=== PATIENT | female | born 1965 | race Hispanic/Latino ===

== ENCOUNTER 2018-09-28 23:10 | Emergency (ER) ==
[~2018-09-28] VITALS: Ht 154.9 cm; Wt 85.7 kg
[2018-09-28] MEDS ORDERED: KETOROLAC TROMETHAMINE 30 MG/ML VIAL IV STA (23:26)
[2018-09-28 23:36] LABS: BASOPHILS % 0.5 % (0.0-1.0); EOSINOPHILS # (AUTO) 0.2 (0.0-0.4); EOSINOPHILS % 1.9 % (0.0-6.0); HEMATOCRIT 37.1 % (34.2-44.1); HEMOGLOBIN 12.5 g/dL (12.0-16.0); LYMPHOCYTES # (AUTO) 2.9 (1.0-3.2); LYMPHOCYTES % 36.6 % (18.0-39.1); MEAN CORPUSCULAR HEMOGLOBIN 31.7 pg (28-32); MEAN CORPUSCULAR HGB CONC 33.7 g/dL (31-35); MEAN CORPUSCULAR VOLUME 94.2 fL (81-99); MONOCYTES # (AUTO) 0.6 (0.2-0.8); MONOCYTES % 8.2 % (4.4-11.3); NEUTROPHILS # (AUTO) 4.1 (2.1-6.9); NEUTROPHILS % 52.2 % (38.7-80.0); PLATELET COUNT 246 x10e3/uL (140-360); RED BLOOD COUNT 3.94 x10e6/uL (3.6-5.1); RED CELL DISTRIBUTION WIDTH 12.9 % (11.7-14.4)
[2018-09-28] MEDS ORDERED: KETOROLAC TROMETHAMINE 30 MG/ML VIAL ONE (23:36)
[2018-09-28] MEDS ORDERED: MAALOX MAXIMUM355 ML PO (23:39)
[2018-09-28] MEDS ORDERED: METFORMIN HCL500 MG PO (23:39)
[2018-09-28] MEDS ORDERED: NORVASC5 MG PO (23:39)
[2018-09-28] MEDS ORDERED: IBUPROFEN400 MG PO (23:39)
[2018-09-28] MEDS ORDERED: GLIPIZIDE5 MG PO (23:39)
[2018-09-28] MEDS ORDERED: LISINOPRIL-HCT1 EACH PO (23:39)
[2018-09-28] MEDS ORDERED: ACTOS15 MG PO (23:39)
[2018-09-28 23:43] LABS: INR 0.87; PARTIAL THROMBOPLASTIN TIME 28.4 seconds (23.8-35.5); PROTHROMBIN TIME 12.3 seconds (11.9-14.5)
[2018-09-29 00:07] LABS: ALANINE AMINOTRANSFERASE 19 IU/L (0-55); ALBUMIN 3.6 g/dL (3.5-5.0); ALKALINE PHOSPHATASE 86 IU/L (40-150); ANION GAP 17.5 mmol/L (8-16); BLOOD UREA NITROGEN 11 mg/dL (7-26); BUN/CREATININE RATIO 13 (6-25); CALCIUM 9.5 mg/dL (8.4-10.2); CARBON DIOXIDE 22 mmol/L (22-29); CHLORIDE 106 mmol/L (98-107); CREATINE KINASE 111 IU/L (29-168); CREATININE, SERUM 0.82 mg/dL (0.57-1.11); EST GLOMERULAR FILTRATION RATE > 60 ML/MIN (60-); GLUCOSE 230 mg/dL (74-118); POTASSIUM 3.5 mmol/L (3.5-5.1); SODIUM 142 mmol/L (136-145)
--- NOTE | 2018-09-29 00:15 | Diagnostic Imaging Report ---
Examination: Single AP view of the chest. COMPARISON: None. INDICATION: Chest pain DISCUSSION: Lines/tubes: None. Lungs: The lungs are well inflated and clear. No pneumonia or pulmonary edema. Pleura: No pleural effusion or pneumothorax. Heart and mediastinum: The heart and the mediastinum are unremarkable. Bones and soft tissues: No acute bony abnormalities. IMPRESSION: 1. No acute cardiopulmonary abnormalities. Signed by: Dr. Matthew Rod M.D. on 09/29/2018 12:11 AM
[2018-09-29 02:53] LABS: CREATINE KINASE 96 IU/L (29-168)
== END 2018-09-29 03:08 | disposition home or self-care (01) ==
LOC: ER 23:10
DX: R07.89 Other chest pain (principal); I10 Essential (primary) hypertension; E11.9 Type 2 diabetes mellitus without complications
CPT/HCPCS: 36415; 71045; 80053; 82550; 82553; 84484; 85025; 85379; 85610; 85730; 93005; 94760; 96374; 99284; J1885

== ENCOUNTER 2018-10-30 12:51 | Emergency (ER) | payer SELFPAY ==
[~2018-10-30] VITALS: Ht 154.9 cm; Wt 85.7 kg
[~2018-10-30 12:51] MED LIST: ACTOS15 MG PO; GLIPIZIDE5 MG PO; IBUPROFEN400 MG PO; LISINOPRIL-HCT1 EACH PO; MAALOX MAXIMUM355 ML PO; METFORMIN HCL500 MG PO; NORVASC5 MG PO
--- OUTSIDE RECORDS SUMMARY | 2018-10-30 12:53 | XMS REPORT ---
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 Allergies, Adverse Reactions, Alerts This patient has no known allergies or adverse reactions. Medications This patient has no known medications. Encounters Start Date/Time End Date/Time Encounter Type Admission Type Attending [facility] Facility Care Department Encounter ID 2018-10-01 00:00:00 2018-10-01 00:00:00 Outpatient [facility] [id number] 2018-08-13 08:34:50 2018-08-13 08:34:50 Outpatient [facility] [id number] 2018-07-20 08:41:51 2018-07-20 08:41:51 Outpatient [facility] [id number] 2018-06-29 08:50:58 2018-06-29 08:50:58 Outpatient [facility] [id number] 2018-06-29 08:07:53 2018-06-29 08:07:53 Outpatient [facility] [id number] 2018-06-22 00:00:00 2018-06-22 00:00:00 Outpatient [facility] [id number] 2018-05-28 10:56:35 2018-05-28 10:56:35 Outpatient [facility] [id number] 2018-05-18 08:18:52 2018-05-18 08:18:52 Outpatient [facility] [id number] 2018-05-14 15:41:49 2018-05-14 15:41:49 Outpatient [facility] [id number] 2018-05-14 00:00:00 2018-05-14 00:00:00 Outpatient [facility] [id number] 2018-05-11 00:00:00 2018-05-11 00:00:00 Outpatient [facility] [id number] 2018-05-04 08:40:20 2018-05-04 08:40:20 Outpatient [facility] [id number] 2018-04-14 09:08:23 2018-04-14 09:08:23 Outpatient [facility] [id number] 2018-04-13 09:53:22 2018-04-13 09:53:22 Outpatient [facility] [id number] 2018-03-16 00:00:00 2018-03-16 00:00:00 Outpatient [facility] [id number] 2018-03-09 14:19:23 2018-03-09 14:19:23 Outpatient [facility] [id number] 2018-03-09 13:52:50 2018-03-09 13:52:50 Outpatient [facility] [id number] 2018-01-28 09:31:03 2018-01-28 09:31:03 Outpatient [facility] [id number] 2018-01-26 00:00:00 2018-01-26 00:00:00 Outpatient [facility] [id number] 2018-01-21 12:47:38 2018-01-21 12:47:38 Outpatient [facility] [id number] 2018-01-19 11:10:26 2018-01-19 11:10:26 Outpatient [facility] [id number] 2018-01-19 10:00:29 2018-01-19 10:00:29 Outpatient [facility] [id number] 2018-01-13 00:00:00 2018-01-13 00:00:00 Outpatient [facility] [id number] 2017-12-18 08:10:35 2017-12-18 08:10:35 Outpatient [facility] [id number] 2017-10-31 11:03:59 2017-10-31 11:03:59 Outpatient [facility] [id number] 2017-10-27 08:59:27 2017-10-27 08:59:27 Outpatient [facility] [id number] 2017-10-27 08:02:54 2017-10-27 08:02:54 Outpatient [facility] [id number] 2017-09-19 08:50:11 2017-09-19 08:50:11 Outpatient [facility] [id number] 2017-09-08 07:18:49 2017-09-08 07:18:49 Outpatient [facility] [id number] 2017-08-25 10:15:27 2017-08-25 10:15:27 Outpatient [facility] [id number] 2017-08-25 09:22:14 2017-08-25 09:22:14 Outpatient [facility] [id number] 2017-08-12 10:55:38 2017-08-12 10:55:38 Outpatient [facility] [id number] 2017-07-16 18:47:48 2017-07-16 18:47:48 Outpatient [facility] [id number] 2017-07-14 09:20:12 2017-07-14 09:20:12 Outpatient [facility] [id number] 2017-07-14 08:22:00 2017-07-14 08:22:00 Outpatient [facility] [id number] 2016-12-12 08:36:36 2016-12-12 08:36:36 Outpatient [facility] [id number] 2016-12-12 08:00:23 2016-12-12 08:00:23 Outpatient [facility] [id number] 2016-12-02 00:00:00 2016-12-02 00:00:00 Outpatient [facility] [id number] Results Test Description Test Time Test Comments Text Results Atomic Results Result Comments CHEST SINGLE (PORTABLE) 2018-09-29 00:08:00 [place] [address] Patient Name: SHANTEL NEWMAN MR #: [id number] : 1965 Age/Sex: 52/F Req #: [id number] Adm Physician: Ordered by: DREW LION MD Report #: [id number] Location: ER Room/Bed: Procedure: [id number] DX/CHEST SINGLE (PORTABLE) Exam Date: 09/28/18 Exam Time: 2339 REPORT STATUS: Signed Examination: Single AP view of the chest. COMPARISON: None. INDICATION: Chest pain DISCUSSION: Lines/tubes: None. Lungs: The lungs are well inflated and clear. No pneumonia or pulmonary edema. Pleura: No pleural effusion or pneumothorax. Heart and mediastinum: The heart and the mediastinum are unremarkable. Bones and soft tissues: No acute bony abnormalities. IMPRESSION: 1. No acute cardiopulmonary abnormalities. Signed by: Dr. Angel Banda M.D. on 09/29/2018 12:11 AM Dictated By: ANGEL BANDA MD Transcribed By: MIHIR on 09/29/1810 COPY TO: DREW LION MD
[2018-10-30] MEDS ORDERED: HYDROCODONE/APAP 5MG-325MG TAB PO ONE (14:00)
--- NOTE | 2018-10-30 14:16 | Diagnostic Imaging Report ---
Exam: Left Knee Series. History: Pain after fall Comparison: None Findings: Three radiographic views of the left knee demonstrate no acute fracture or dislocation. Alignment is anatomic. No substantial degenerative change. Moderate suprapatellar joint effusion. Impression: Moderate suprapatellar knee joint effusion. No underlying acute osseous injury. Signed by: Randall Albrecht MD on 10/30/2018 2:12 PM
[2018-10-30] MEDS ORDERED: GUAIFENESIN 600 MG TAB ONE (14:52)
[2018-10-30] MEDS ORDERED: IBUPROFEN 400 MG TAB ONE (14:53)
[2018-10-30] MEDS ORDERED: IBUPROFEN 600 MG TAB PO ONE (15:00)
== END 2018-10-30 16:16 | disposition home or self-care (01) ==
LOC: ER 12:51
DX: S80.02XA Contusion of left knee, initial encounter (principal); W10.9XXA Fall (on) (from) unspecified stairs and steps, initial encounter; S83.92XA Sprain of unspecified site of left knee, initial encounter
CPT/HCPCS: 99284

== ENCOUNTER 2019-12-24 15:42 | Emergency (ER) | payer OTHER ==
[~2019-12-24] VITALS: Ht 154.9 cm; Wt 81.2 kg
[2019-12-24 16:09] LABS: BASOPHILS % 0.4 % (0.0-1.0); EOSINOPHILS # (AUTO) 0.1 (0.0-0.4); EOSINOPHILS % 1.2 % (0.0-6.0); HEMOGLOBIN 13.3 g/dL (12.0-16.0); LYMPHOCYTES # (AUTO) 2.4 (1.0-3.2); LYMPHOCYTES % 36.1 % (18.0-39.1); MEAN CORPUSCULAR HEMOGLOBIN 31.5 pg (28-32); MEAN CORPUSCULAR HGB CONC 34.1 g/dL (31-35); MEAN CORPUSCULAR VOLUME 92.4 fL (81-99); MONOCYTES # (AUTO) 0.4 (0.2-0.8); MONOCYTES % 6.1 % (4.4-11.3); NEUTROPHILS # (AUTO) 3.8 (2.1-6.9); NEUTROPHILS % 55.8 % (38.7-80.0); PLATELET COUNT 254 x10e3/uL (140-360); RED BLOOD COUNT 4.22 x10e6/uL (3.6-5.1); RED CELL DISTRIBUTION WIDTH 13.3 % (11.7-14.4)
[2019-12-24 16:24] LABS: ALANINE AMINOTRANSFERASE 39 IU/L (0-55); ALBUMIN 4.3 g/dL (3.5-5.0); ALBUMIN/GLOBULIN RATIO 1.3 (0.8-2.0); ALKALINE PHOSPHATASE 92 IU/L (40-150); ANION GAP 13.9 mmol/L (8-16); BLOOD UREA NITROGEN 13 mg/dL (7-26); BUN/CREATININE RATIO 16 (6-25); CALCIUM 9.4 mg/dL (8.4-10.2); CARBON DIOXIDE 23 mmol/L (22-29); CHLORIDE 108 mmol/L (98-107); CREATININE, SERUM 0.82 mg/dL (0.57-1.11); EST GLOMERULAR FILTRATION RATE > 60 ML/MIN (60-); GLUCOSE 174 mg/dL (74-118); POTASSIUM 3.9 mmol/L (3.5-5.1); SODIUM 141 mmol/L (136-145)
--- NOTE | 2019-12-24 16:39 | Emergency Department Note ---
History of Present Illnes History of Present Illness Chief Complaint: General Medicine Complaints History of Present Illness This is a 53 year old female arrives to the ED with concerns of high blood sugar and high blood pressure. Patient states she is worried she might need to be started on insulin because her sugars are better control. Patient states her sugar at home was 333 which prompted her come to the ED for further workup and management.. Chief Complaint Comment pt c/o dizziness, pt states that she checked her sugar that has been inconsistent, her baseline is usually 150's but recently it has been above 250-300, pt also states that she tested positive for COVID-19 in September and her most recent test in November was negative but her antibody test came back positive, denies fever or respiratory symptoms, pt takes 3 anti-diabetics but not insulin Historian: Patient Arrival Mode: Car Onset (how long ago): hour(s) Radiation: Reports non-radiation Severity: mild Duration (how long): hour(s) Timing of current episode: constant Progression: unchanged Chronicity: chronic Relieving factors: none Exacerbating factors: none Associated symptoms: Reports denies other symptoms Past Medical/Family History Physician Review I have reviewed the patient's past medical and family history. Any updates have been documented here. Past Medical History Recent Fever: No Clinical Suspicion of Infectio: No New/Unexplained Change in Ment: No Past Medical History: Hypertension, Diabetes Past Surgical History: Social History Smoking Cessation: Never Smoker Alcohol Use: Social Other Last Tetanus: OOD Review of Systems Review of Systems Constitutional: Reports no symptoms EENTM: Reports no symptoms Cardiovascular: Reports no symptoms Respiratory: Reports no symptoms Gastrointestinal: Reports no symptoms Genitourinary: Reports no symptoms Musculoskeletal: Reports no symptoms Integumentary: Reports no symptoms Neurological: Reports no symptoms Psychological: Reports no symptoms Endocrine: Reports no symptoms Hematological/Lymphatic: Reports no symptoms Physical Exam Related Data Allergies: Coded Allergies: Penicillins (Verified Allergy, Severe, 10/30/18) Triage Vital Signs Vital Signs Date Time Temp Pulse Resp B/P (MAP) Pulse Ox O2 Delivery O2 Flow Rate FiO2 12/24/19 15:48 98.4 76 18 160/69 96 Room Air Vital signs reviewed: Yes Physical Exam CONSTITUTIONAL Constitutional: Present well-developed, Present well-nourished, Present obese HENT HENT: Present normocephalic, Present atraumatic, Present oropharynx clear/moist, Present nose normal HENT L/R: Present left ext ear normal, Present right ext ear normal EYES Eyes: Reports PERRL, Reports conjunctivae normal NECK Neck: Present ROM normal PULMONARY Pulmonary: Present effort normal, Present breath sounds normal CARDIOVASCULAR Cardiovascular: Present regular rhythm, Present heart sounds normal, Present capillary refill normal, Present normal rate GASTROINTESTINAL Abdominal: Present soft, Present nontender, Present bowel sounds normal GENITOURINARY Genitourinary: Present exam deferred SKIN Skin: Present warm, Present dry MUSCULOSKELETAL Musculoskeletal: Present ROM normal NEUROLOGICAL Neurological: Present alert, Present oriented x 3, Present no gross motor or sensory deficits PSYCHOLOGICAL Psychological: Present mood/affect normal, Present judgement normal Results Laboratory Result Diagram: 12/24/19 1600 12/24/19 1600 Laboratory Laboratory Tests Test 12/24/19 16:00 White Blood Count 6.74 x10e3/uL (4.8-10.8) Red Blood Count 4.22 x10e6/uL (3.6-5.1) Hemoglobin 13.3 g/dL (12.0-16.0) Hematocrit 39.0 % (34.2-44.1) Mean Corpuscular Volume 92.4 fL (81-99) Mean Corpuscular Hemoglobin 31.5 pg (28-32) Mean Corpuscular Hemoglobin Concent 34.1 g/dL (31-35) Red Cell Distribution Width 13.3 % (11.7-14.4) Platelet Count 254 x10e3/uL (140-360) Neutrophils (%) (Auto) 55.8 % (38.7-80.0) Lymphocytes (%) (Auto) 36.1 % (18.0-39.1) Monocytes (%) (Auto) 6.1 % (4.4-11.3) Eosinophils (%) (Auto) 1.2 % (0.0-6.0) Basophils (%) (Auto) 0.4 % (0.0-1.0) Neutrophils # (Auto) 3.8 (2.1-6.9) Lymphocytes # (Auto) 2.4 (1.0-3.2) Monocytes # (Auto) 0.4 (0.2-0.8) Eosinophils # (Auto) 0.1 (0.0-0.4) Basophils # (Auto) 0.0 (0.0-0.1) Absolute Immature Granulocyte (auto 0.03 x10e3/uL (0-0.1) Sodium Level 141 mmol/L (136-145) Potassium Level 3.9 mmol/L (3.5-5.1) Chloride Level 108 mmol/L (98-107) Carbon Dioxide Level 23 mmol/L (22-29) Anion Gap 13.9 mmol/L (8-16) Blood Urea Nitrogen 13 mg/dL (7-26) Creatinine 0.82 mg/dL (0.57-1.11) Estimat Glomerular Filtration Rate > 60 ML/MIN (60-) BUN/Creatinine Ratio 16 (6-25) Glucose Level 174 mg/dL (74-118) Calcium Level 9.4 mg/dL (8.4-10.2) Total Bilirubin 0.4 mg/dL (0.2-1.2) Aspartate Amino Transf (AST/SGOT) 34 IU/L (5-34) Alanine Aminotransferase (ALT/SGPT) 39 IU/L (0-55) Alkaline Phosphatase 92 IU/L (40-150) Total Protein 7.6 g/dL (6.5-8.1) Albumin 4.3 g/dL (3.5-5.0) Globulin 3.3 g/dL (2.3-3.5) Albumin/Globulin Ratio 1.3 (0.8-2.0) Lab results reviewed: Yes Imaging Imaging results reviewed: Yes Procedures 12 Lead ECG Interpretation ECG Interpretation : ECG: ECG 2 Prior ECG tracings: reviewed Rhythm: sinus rhythm QRS axis: normal ST segments normal: Yes T waves normal: Yes Clinical Impression: normal ECG Assessment & Plan Medical Decision Making MDM 53-year-old well-appearing female arrived to the ED with concerns of high blood pressure and high blood sugar. Blood pressure ED noted to be in the 120s over 80s without medications given. Patient CMP glucose is 176. Patient reported no complaints. No indication for further workup or hospital admission at this time. Patient stable for discharge home. All clinical impressions and diagnoses provided are preliminary ED determinations subject to the inherent limitations of an emergent non-scheduled evaluation and possible lack of comprehensive previous records. All patient care including history taking, review of systems, physical exam, nursing notes review, medical decision making, clinical course management in the emergency department, clinical impression, disposition and plan formulation was performed on the date of service. This note was created using a voice-recognition transcribing system. Incorrect words or phrases may have been missed during proofreading. Please interpret accordingly Assessment & Plan Final Impression: (1) Hypertension (2) Diabetes Depart Disposition: HOME, SELF-CARE Last Vital Signs Date Time Temp Pulse Resp B/P (MAP) Pulse Ox O2 Delivery O2 Flow Rate FiO2 12/24/19 15:48 98.4 76 18 160/69 96 Room Air Home Meds Reported Medications Pioglitazone Hcl* (ACTOS*) 15 Mg Tablet, 30 MG PO DAILY, #60 TAB 09/28/18 Metformin Hcl (METFORMIN HCL) 500 Mg Tablet, 500 MG PO DAILY, #60 TAB 09/28/18 Mag Hydrox/Al Hydrox/Simeth (MAALOX MAXIMUM STRENGTH SUSP) 355 Ml Oral.susp, 30 ML PO Q4H PRN for GI UPSET 09/28/18 Lisinopril/Hydrochlorothiazide (LISINOPRIL-HCTZ 20-12.5 MG TAB) 1 Each Tablet, 1 TAB PO DAILY 09/28/18 Ibuprofen (IBUPROFEN) 400 Mg Tablet, 800 MG PO Q8H PRN for Mild Pain (1-3) or Fever>100.8, TAB 09/28/18 Glipizide (GLIPIZIDE) 5 Mg Tablet, 10 MG PO BID, TAB 09/28/18 Amlodipine Besylate (NORVASC) 5 Mg Tab, 10 MG PO DAILY, #30 TAB 09/28/18 RON ZUNIGA DO Dec 24, 2019 16:39
[2019-12-24 17:42] VITALS: BP 131/75
--- NOTE | 2019-12-24 18:34 | Diagnostic Imaging Report ---
Examination: CT BRAIN WO History:^Y ^dizzy ^[id number] ^[id number] Comparison studies:None Technique: Axial images were obtained from the skull base to the vertex. Coronal and sagittal images reconstructed from the axial data. Dose modulation, iterative reconstruction, and/or weight based adjustment of the mA/kV was utilized to reduce the radiation dose to as low as reasonably achievable. Intravenous contrast: None Findings: Scalp: No abnormalities. Bones: No fractures, blastic or lytic lesions. Brain sulci: Appropriate for age. Ventricles: Normal in size and configuration. No hydrocephalus. Extra-axial space: No abnormalities. Parenchyma: No abnormal densities. No masses, hemorrhage, or acute or chronic cortical based vascular insults.. Sellar/suprasellar region: No abnormalities. Craniocervical junction: Patent foramen magnum. No Chiari one malformation. Incidental findings: None. Impression: No intracranial abnormalities. Signed by: Dr. Josee Ness M.D. on 12/24/2019 6:30 PM
== END 2019-12-24 17:30 | disposition home or self-care (01) ==
LOC: ER 16:01
DX: E11.65 Type 2 diabetes mellitus with hyperglycemia (principal); I10 Essential (primary) hypertension
CPT/HCPCS: 36415; 70450; 80053; 83880; 85025; 93005; 99284

== ENCOUNTER 2020-01-07 15:14 | Emergency (ER) | payer OTHER ==
[~2020-01-07] VITALS: Ht 154.9 cm; Wt 81.2 kg
[2020-01-07] MEDS ORDERED: SODIUM CHLORIDE 0.9% 1000ML 1,000 ML IV STA (15:35)
[2020-01-07] MEDS ORDERED: KETOROLAC TROMETHAMINE 30 MG/ML VIAL IV STA (15:37)
[2020-01-07 15:45] LABS: BASOPHILS % 0.4 % (0.0-1.0); EOSINOPHILS # (AUTO) 0.1 (0.0-0.4); EOSINOPHILS % 1.5 % (0.0-6.0); HEMATOCRIT 41.2 % (34.2-44.1); HEMOGLOBIN 13.7 g/dL (12.0-16.0); LYMPHOCYTES # (AUTO) 2.1 (1.0-3.2); LYMPHOCYTES % 38.8 % (18.0-39.1); MEAN CORPUSCULAR HEMOGLOBIN 31.9 pg (28-32); MEAN CORPUSCULAR HGB CONC 33.3 g/dL (31-35); MEAN CORPUSCULAR VOLUME 95.8 fL (81-99); MONOCYTES # (AUTO) 0.4 (0.2-0.8); MONOCYTES % 7.9 % (4.4-11.3); NEUTROPHILS # (AUTO) 2.8 (2.1-6.9); NEUTROPHILS % 50.9 % (38.7-80.0); PLATELET COUNT 260 x10e3/uL (140-360); RED CELL DISTRIBUTION WIDTH 13.2 % (11.7-14.4)
[2020-01-07] MEDS ORDERED: DIPHENHYDRAMINE HCL INJ 50 MG/ML VIAL IV ONE (15:45)
[2020-01-07] MEDS ORDERED: METOCLOPRAMIDE HCL 10 MG/2ML VIAL IV ONE (15:45)
--- NOTE | 2020-01-07 15:50 | Emergency Department Note ---
History of Present Illnes History of Present Illness Chief Complaint: General Medicine Complaints History of Present Illness This is a 54 year old female with dizziness today, occurs when standing. Also c/o left sided headache gradual throughout the day. States seen here for same problem 2 wks ago. ambulatory with steady gait. aaox4. Historian: Patient, Family Member Arrival Mode: Car Case Checker Required: No Onset (how long ago): hour(s) Location: dizziness Quality: lightheaded, not vertigo Radiation: Reports non-radiation Severity: moderate Timing of current episode: intermittent Progression: waxing and waning Relieving factors: rest Exacerbating factors: other (standing) Associated symptoms: Reports denies other symptoms, Reports headaches; Denies chest pain, Denies shortness of breath Past Medical/Family History Physician Review I have reviewed the patient's past medical and family history. Any updates have been documented here. Past Medical History Recent Fever: No Clinical Suspicion of Infectio: No New/Unexplained Change in Ment: No Past Medical History: Hypertension, Diabetes Past Surgical History: Social History Smoking Cessation: Never Smoker Counseling Performed: No Alcohol Use: None Any Illegal Drug Use: No TB Exposure/Symptoms: No Physically hurt or threatened: No Family History Family history of heart diseas: No Other Last Tetanus: OOD Any Pre-Existing Lines (PICC,: No Review of Systems Review of Systems Constitutional: Reports no symptoms EENTM: Reports no symptoms Cardiovascular: Reports no symptoms Respiratory: Reports no symptoms Gastrointestinal: Reports no symptoms Genitourinary: Reports no symptoms Musculoskeletal: Reports no symptoms Integumentary: Reports no symptoms Neurological: Reports headache, Reports other (lightheaded) Psychological: Reports no symptoms Endocrine: Reports no symptoms Hematological/Lymphatic: Reports no symptoms Physical Exam Related Data Allergies: Coded Allergies: Penicillins (Verified Allergy, Severe, 10/30/18) Triage Vital Signs Vital Signs Date Time Temp Pulse Resp B/P (MAP) Pulse Ox O2 Delivery O2 Flow Rate FiO2 01/07/20 15:17 97.6 78 16 155/72 100 Room Air Vital signs reviewed: Yes Physical Exam CONSTITUTIONAL Constitutional: Present well-developed, Present well-nourished HENT HENT: Present normocephalic, Present atraumatic, Present oropharynx clear/moist, Present nose normal HENT L/R: Present left ext ear normal, Present right ext ear normal EYES Eyes: Reports PERRL, Reports conjunctivae normal NECK Neck: Present ROM normal, Present supple; Absent carotid bruit PULMONARY Pulmonary: Present effort normal, Present breath sounds normal CARDIOVASCULAR Cardiovascular: Present regular rhythm, Present heart sounds normal, Present capillary refill normal, Present normal rate, Present murmur (2/6 sys murmur) GASTROINTESTINAL Abdominal: Present soft, Present nontender, Present bowel sounds normal GENITOURINARY Genitourinary: Present exam deferred SKIN Skin: Present warm, Present dry MUSCULOSKELETAL Musculoskeletal: Present ROM normal NEUROLOGICAL Neurological: Present alert, Present oriented x 3, Present no gross motor or sensory deficits PSYCHOLOGICAL Psychological: Present mood/affect normal, Present judgement normal Results Laboratory Laboratory Laboratory Tests Test 01/07/20 15:00 White Blood Count 5.47 x10e3/uL (4.8-10.8) Red Blood Count 4.30 x10e6/uL (3.6-5.1) Hemoglobin 13.7 g/dL (12.0-16.0) Hematocrit 41.2 % (34.2-44.1) Mean Corpuscular Volume 95.8 fL (81-99) Mean Corpuscular Hemoglobin 31.9 pg (28-32) Mean Corpuscular Hemoglobin Concent 33.3 g/dL (31-35) Red Cell Distribution Width 13.2 % (11.7-14.4) Platelet Count 260 x10e3/uL (140-360) Neutrophils (%) (Auto) 50.9 % (38.7-80.0) Lymphocytes (%) (Auto) 38.8 % (18.0-39.1) Monocytes (%) (Auto) 7.9 % (4.4-11.3) Eosinophils (%) (Auto) 1.5 % (0.0-6.0) Basophils (%) (Auto) 0.4 % (0.0-1.0) Neutrophils # (Auto) 2.8 (2.1-6.9) Lymphocytes # (Auto) 2.1 (1.0-3.2) Monocytes # (Auto) 0.4 (0.2-0.8) Eosinophils # (Auto) 0.1 (0.0-0.4) Basophils # (Auto) 0.0 (0.0-0.1) Absolute Immature Granulocyte (auto 0.03 x10e3/uL (0-0.1) Urine Color Yellow (YELLOW) Urine Clarity Sl cloudy (CLEAR) Urine pH 5.5 (5 - 7) Urine Specific [place] 1.030 (1.010-1.025) Urine Protein Negative (NEGATIVE) Urine Glucose (UA) 2+ (NEGATIVE) Urine Ketones Negative (NEGATIVE) Urine Blood Negative (NEGATIVE) Urine Nitrite Negative (NEGATIVE) Urine Bilirubin Negative (NEGATIVE) Urine Urobilinogen 0.2 mg/dL (0.2 - 1) Urine Leukocyte Esterase Negative (NEGATIVE) Urine RBC None /HPF (0-5) Urine WBC None /HPF (0-5) Urine Epithelial Cells Moderate /LPF (NONE) Urine Bacteria Many /HPF (NONE) Sodium Level 139 mmol/L (136-145) Potassium Level 4.0 mmol/L (3.5-5.1) Chloride Level 104 mmol/L (98-107) Carbon Dioxide Level 25 mmol/L (22-29) Anion Gap 14.0 mmol/L (8-16) Blood Urea Nitrogen 13 mg/dL (7-26) Creatinine 0.85 mg/dL (0.57-1.11) Estimat Glomerular Filtration Rate > 60 ML/MIN (60-) BUN/Creatinine Ratio 15 (6-25) Glucose Level 260 mg/dL (74-118) Calcium Level 9.6 mg/dL (8.4-10.2) Creatine Kinase 100 IU/L (29-168) Creatine Kinase MB 1.20 ng/mL (0-5.0) Troponin I < 0.001 ng/mL (0-0.300) Laboratory Tests Test 01/07/20 15:00 Lab results reviewed: Yes Imaging Imaging Comments pt had CT brain negative here on 12/24/19 which i reviewed and was normal. Procedures 12 Lead ECG Interpretation ECG Interpretation : ECG: ECG 1 Case Checker: Interpreted by ED physician Date: Jan 07, 2020 Time: 15:24 Rhythm: sinus rhythm Rate: normal BPM: 65 QRS axis: normal ST segments normal: Yes T waves flattening: III, aVF, V3, V4, V5 Clinical Impression: non-specific ECG Assessment & Plan Medical Decision Making MDM Dizziness sounds like orthostatic dizziness most likely from polyuria due to hyperglycemia - check cbc, chem, ua/cx, cardiac enzymes, ecg - r/o dysrhythmia, STEMI/NSTEMI, hyperglycemia, renal insuff, electrolyte abnl, uti. Will give meds for headache and IVF's. Will not repeat CT brain done 12/24/19, neuro exam normal Reassessment Reassessment DC HOME, STRICT DIABETIC DIET, DRINK PLENTY OF FLUIDS (NON-SUGAR DRINKS), F/U PCP, RTED PRN Assessment & Plan Final Impression: (1) Orthostatic dizziness (2) Diabetes Depart Disposition: HOME, SELF-CARE Last Vital Signs Date Time Temp Pulse Resp B/P (MAP) Pulse Ox O2 Delivery O2 Flow Rate FiO2 01/07/20 15:40 108/61 01/07/20 15:37 66 18 100 Room Air 01/07/20 15:17 97.6 Home Meds Reported Medications Pioglitazone Hcl* (ACTOS*) 15 Mg Tablet, 30 MG PO DAILY, #60 TAB 09/28/18 Metformin Hcl (METFORMIN HCL) 500 Mg Tablet, 500 MG PO DAILY, #60 TAB 09/28/18 Mag Hydrox/Al Hydrox/Simeth (MAALOX MAXIMUM STRENGTH SUSP) 355 Ml Oral.susp, 30 ML PO Q4H PRN for GI UPSET 09/28/18 Lisinopril/Hydrochlorothiazide (LISINOPRIL-HCTZ 20-12.5 MG TAB) 1 Each Tablet, 1 TAB PO DAILY 09/28/18 Ibuprofen (IBUPROFEN) 400 Mg Tablet, 800 MG PO Q8H PRN for Mild Pain (1-3) or Fever>100.8, TAB 09/28/18 Glipizide (GLIPIZIDE) 5 Mg Tablet, 10 MG PO BID, TAB 09/28/18 Amlodipine Besylate (NORVASC) 5 Mg Tab, 10 MG PO DAILY, #30 TAB 09/28/18 Medications in the ED Sodium Chloride 1,000 ml @ 0 mls/hr Q0M STAT IV ; Start 01/07/20 at 15:35; Stop 01/07/20 at 15:37; Status DC Ketorolac Tromethamine 30 mg ONCE STAT IV ; Start 01/07/20 at 15:37; Stop 01/07/20 at 15:38; Status UNV Metoclopramide HCl 5 mg ONCE ONCE IV ; Start 01/07/20 at 15:45; Stop 01/07/20 at 15:46; Status UNV Diphenhydramine HCl 25 mg NOW ONCE IV ; Start 01/07/20 at 15:45; Stop 01/07/20 at 15:46; Status UNV VIOLETTE SANCHES MD Jan 07, 2020 15:50
[2020-01-07 15:52] LABS: BILIRUBIN,URINE NEGATIVE (NEGATIVE); CLARITY,URINE SL CLOUDY (CLEAR); COLOR,URINE YELLOW (YELLOW); KETONES,URINE NEGATIVE (NEGATIVE); LEUKOCYTE ESTERASE ,URINE NEGATIVE (NEGATIVE); NITRITE,URINE NEGATIVE (NEGATIVE); PROTEIN,URINE DIPSTICK NEGATIVE (NEGATIVE); URINE UROBILINOGEN 0.2 mg/dL (0.2 - 1)
[2020-01-07 15:58] LABS: BLOOD UREA NITROGEN 13 mg/dL (7-26); BUN/CREATININE RATIO 15 (6-25); CALCIUM 9.6 mg/dL (8.4-10.2); CARBON DIOXIDE 25 mmol/L (22-29); CHLORIDE 104 mmol/L (98-107); CREATINE KINASE 100 IU/L (29-168); CREATININE, SERUM 0.85 mg/dL (0.57-1.11); EST GLOMERULAR FILTRATION RATE > 60 ML/MIN (60-); GLUCOSE 260 mg/dL (74-118); SODIUM 139 mmol/L (136-145)
[2020-01-07 16:03] LABS: BACTERIA,URINE MANY /HPF; EPITHELIAL CELLS,URINE MODERATE /LPF
--- OUTSIDE RECORDS SUMMARY | 2020-01-07 16:10 | XMS REPORT | Continuity of Care Document ---
Author Author [facility] t Organization [facility] Address [address] [place] [address] Phone Unavailable Care Team Providers Care Test Car Driver Name Role Phone NONSTAFF PCP Unavailable Henrry HANNON, Rhoda Attphys [phone] Ileana ZUNIGA Attphys Unavailable Sterling STUARTM, Ten Alvarado Attphys Helen OD, F Olya Attphys Beto HANNON, O Parminder Attphys [phone] Rebecca HANNON, P Vic Attphys Genevieve HANNON, Justyna Attphys Wilbert PT, Bo Colbert Attphys Unavailable Aissatou Black MD Attphys Vijay HOME STEREO EQUIPMENT INSTALLER, Mitch Attphys Kenneth HANNON, Gordo Attphys Raul HOME STEREO EQUIPMENT INSTALLER, Katy Attphys Angeline HANNON, Geoffrey Hanna Attphys [phone] Aissatou LION Attphys Unavailable Eddie PT, Kam Carrion Attphys Unavailable Marcela Medina MD Attphys Kam Hill MD Attphys Payers Payer Name Policy Type Policy Number Effective Date Expiration Date anali [facility] [employer] CHOICE [id number], [place] [address] xxxxxxxxxxxx 2019 00:00:00 2078 23:59:59 H [facility] PLANFINANCIAL ASSISTANCE PROGRAMxxx [id number] [place] [address] xxxxxx 2019 00:00:00 2019-04 23:59:59 [facility] Problems Condition Name Condition Details Condition Category Status Onset Date Resolution Date Last Treatment Date Treating Clinician Comments Source Bilateral chronic knee pain Bilateral chronic knee pain Disease Active 2019-06-01 00:00:00 [facility] Impaired functional mobility, balance, gait, and endur ance Impaired functional mobility, balance, gait, and endurance Disease Active 2019-06-01 00:00:00 [facility] Cholelithiasis without cholecystitis at this visit Cho lelithiasis without cholecystitis at this visit Disease Active 2019-05-21 00:00:00 [facility] Gastroenteritis Gastroenteritis Disease Active 2015-09-14 00:00:00 [facility] Nausea vomiting and diarrhea Nausea vomiting and diarrhea Disease Active 2015-09-13 00:00:00 [facility] Epigastric abdominal pain Epigastric abdominal pain Disease Ac tive 2015-09-13 00:00:00 [facility] Diabetes mellitus without complication Diabetes mellitus wit hout complication Disease Active 2015-07-26 00:00:00 [facility] Diastolic dysfunction Diastolic dysfunction Disease Active 201 09-09-03 00:00:00 [facility] HTN (hypertension) HTN (hypertension) Disease Active 2009-04-26 00:00:0 0 [facility] Heart murmur Heart murmur Disease Active 2009-04-26 00:00:00 [facility] Hyperglycemia Hyperglycemia Disease Active 2007-10-06 00:00:00 [facility] Abnormal LFT's Abnormal LFT's Disease Active 2006-11-21 00:00:00 [facility] Mixed hyperlipidemia Mixed hyperlipidemia Disease Active 00:00:00 [facility] Diabetes mellitus Problem Active [facility] Allergies, Adverse Reactions, Alerts Allergy Name Allergy Type Status Severity Reaction(s) Onset Date Inacti ve Date Treating Clinician Comments Source Penicillin Allergy to substance Active Severe 2018-10-30 00:00:00 [facility] Penicillins Propensity to adverse reactions to drug Active Rash 2009-04-04 00:00:00 [facility] Family History Family Member Diagnosis Comments Start Date Stop Date Source Natural brother Other [facility] gabby Natural father Heart [place] [facility] Natural father Hypertension [place] [facility] Natural mother [facility] Natural mother Hypertension [place] [facility] Natural mother Other Len [facility] Natural sister Other [place] [facility] Social History Social Habit Start Date Stop Date Quantity Comments Source Sex Assigned At [facility] Exposure to SARS-CoV-2 (event) Not sure [facility] Alcohol intake 2019-11-08 00:00:00 2019-11-08 00:00:00 Current non-drinker of alcohol (finding) [facility] Food Worry 2017-07-14 00:00:00 2017-07-14 00:00:00 1 [facility] Food Scarcity 2017-07-14 00:00:00 2017-07-14 00:00:00 1 [facility] Smoking Status Start Date Stop Date Source Never smoker [facility] Medications Ordered Medication Name Filled Medication Name Start Date Stop Da te Current Medication? Ordering Clinician Indication Dosage Frequency Signature (SIG) Comments Components Source pioglitazone (ACTOS) 30 mg tablet 2019 00:00:00 Yes Diabetes mellitus without complication 30mg QD Take 1 tablet by mouth daily . [facility] blood glucose test strips 2019 00:00:00 Yes Diabetes mellitus without complication 2 times weekly to test blood sugar. [facility] lancets 28 gauge 2019 00:00:00 Yes Diabetes mellitus without complication by MISCELLANEOUS route 2 times weekly. [facility] glyBURIDE-metFORMIN (GLUCOVANCE) 5-500 mg per tablet 2 00:00:00 Yes Diabetes mellitus without complication 1{tbl} QD Take 1 tablet by mouth daily (with breakfast). [facility] loteprednol etabonate (LOTEMAX) 0.5 % ophthalmic suspension 2019-11-15 00:00:00 2019-12-16 23:59:00 No Pingueculitis of right eye 1[d rp] Instill 1 Drop in right eye 4 times daily for 7 days. [facility] losartan (COZAAR) 50 mg tablet 2019-11-08 00:00:00 Yes Essential hypertension 50mg QD Take 1 tablet by mouth daily. [facility] tropicamide (MYDRIACYL) 0.5 % ophthalmic solution 2019-11-08 00:00:00 2020-05-06 23:59:00 Yes Diabetes mellitus wi th hemoglobin A1c goal of 7.0%-8.0% 1[drp] Instill 1 Drop in ea ch eye once as needed for up to 1 dose (for poor retina scan image). [facility] pioglitazone (ACTOS) 30 mg tablet 2019-11-08 00:00:00 2019 00:00:00 No Diabetes mellitus without complication 30mg QD Take 1 t ablet by mouth daily. [facility] mometasone (NASONEX) 50 mcg/actuation nasal spray 2019-09-15 00:00:00 Yes Viral URI with cough 2{spray} QD 2 Sprays by each nostril route daily. [facility] montelukast (SINGULAIR) 10 mg tablet 2019-09-15 00:00:00 Yes Viral URI with cough 10mg Take 1 tablet by mouth at bedtime nightly. [facility] benzonatate (TESSALON PERLES) 100 mg capsule 00:00:00 2019-09-29 23:59:00 No Viral URI with cough 100mg Take 1 capsule by mouth 3 times daily as needed for up to 14 days for Cough. [facility] codeine-guaiFENesin (ROBAFEN AC) 10-100 mg/5 mL syrup 2019-06-07 00:00:00 Yes Cough 5mL Take 5 mL by mouth 3 times daily as need ed for Cough. [facility] losartan (COZAAR) 50 mg tablet 2019-06-07 00:00:00 3 00:00:00 No Essential hypertension 50mg QD Take 1 tablet by mouth daily. [facility] codeine-guaiFENesin (ROBAFEN AC) 10-100 mg/5 mL syrup 2019-06-07 00:00:00 2019-06-07 00:00:00 No Cough 5mL Take 5 mL by mouth 3 times daily as needed for Cough. [facility] codeine-guaiFENesin (ROBAFEN AC) 10-100 mg/5 mL syrup 2019-06-07 00:00:00 2019-06-07 00:00:00 No Cough 5mL Take 5 mL by mouth 3 times daily as needed for Cough. [facility] triamcinolone acetonide (KENALOG-40) injection 40 mg 2019-05-24 09:00:00 2019-05-24 14:22:00 No Rupture of anterior cruciate ligament of left knee, initial encounter 40mg [facility] lidocaine (PF) (XYLOCAINE) 10 mg/mL (1 %) injection 10 mL 2019-05-24 09:00:00 2019-05-24 14:22:00 No Rupture of anterior cruciate ligament of left knee, initial encounter 10mL [facility] loratadine (CLARITIN) 10 mg tablet 2019-05-11 00:00:00 Yes Viral upper respiratory tract infection with cough 10mg QD Take 1 tablet b y mouth daily. [facility] benzonatate (TESSALON PERLES) 100 mg capsule 202 00:00:00 2019-09-15 00:00:00 No Viral upper respiratory tract infection with co ugh Take one to two capsules every 8 hours as needed for cough. CAUTION: may cause drowsiness. [facility] mometasone (NASONEX) 50 mcg/actuation nasal spray 2019-05-11 00:00:00 2019-09-15 00:00:00 No Viral upper respiratory trac t infection with cough 2{spray} QD 2 Sprays by each nostril route daily. [facility] dicyclomine (BENTYL) 20 mg tablet 2019-04-23 00:00:00 Yes Calculus of gallbladder without cholecystitis without obstruction 20mg Take 1 tablet by mouth 4 times daily. [facility] ondansetron (ZOFRAN) 4 mg tablet 2019-04-23 00:00:00 Yes Calculus of gallbladder without cholecystitis without obstruction 4mg Take 1 tablet by mouth every 8 hours as needed for Nausea. [facility] acetaminophen-codeine (TYLENOL/CODEINE #3) 300-30 mg per tab let 2019-04-23 00:00:00 Yes Calculus of gall bladder without cholecystitis without obstruction 1{tbl} Take 1 tablet by mouth 2 times daily as n eeded for Pain. [facility] clonazePAM (KLONOPIN) 0.5 mg tablet 2019-04-23 00:00:00 Yes Anxiety .5mg Take 1 tablet by mouth 2 times daily as needed for Anxiety. [facility] famotidine (PEPCID) 20 mg tablet 2019-04-23 00:00:00 Yes Abdominal pain, epigastric 20mg Q.5D Take 1 tablet by mouth 2 times daily. [facility] glipiZIDE (GLUCOTROL) 5 mg tablet 2019-04-23 00:00:00 2019 00:00:00 No Diabetes mellitus without complication 10mg Q.5D Take 2 tablets by mouth 2 times daily (before meals). [facility] pioglitazone (ACTOS) 30 mg tablet 2019-04-23 00:00:00 2019 00:00:00 No Diabetes mellitus without complication 30mg QD Take 1 t ablet by mouth daily. [facility] lisinopril-hydrochlorothiazide (PRINZIDE, ZESTORETIC) 20-12. 5 mg per tablet 2019-03-31 00:00:00 2019-06-07 00:00:00 No Essential hypertensi on 1{tbl} QD Take 1 tablet by mouth daily. [facility] blood glucose test strips 2019-03-25 00:00:00 2019 00: 00:00 No Non- insulin dependent type 2 diabetes mellitus 2 times weekly to test blood sugar. [facility] amLODIPine (NORVASC) 10 mg tablet 2019-03-23 00:00:00 Yes Essential hypertension 10mg QD Take 1 tablet by mouth daily. [facility] metFORMIN (GLUCOPHAGE) 500 mg tablet 2019-03-23 00:00: 00 2019 00:00:00 No Diabetes mellitus without complication 500mg Take 1 tablet by mouth 2 times daily (with meals). [facility] triamcinolone acetonide (KENALOG-40) injection 40 mg 2019-02-22 11:30:00 2019-02-22 13:49:00 No Complex tear of medi al meniscus of left knee as current injury, initial encounter 40mg [facility] lidocaine (PF) (XYLOCAINE) 10 mg/mL (1 %) injection 10 mL 2019-02-22 11:30:00 2019-02-22 13:49:00 No Complex tear of medi al meniscus of left knee as current injury, initial encounter 10mL [facility] ibuprofen (MOTRIN) 800 mg tablet 2018-11-16 00:00:00 Yes Biceps tendinitis, right 800mg Take 1 tablet by roberta th every 8 hours as needed for Pain or Fever > 100.5. [facility] traMADol (ULTRAM) 50 mg tablet 2018-11-16 00:00:00 2019-04-07 7 00:00:00 No Acute pain of left knee 50mg Take 1 tablet by mouth 4 times daily as needed for Pain. [facility] pioglitazone (ACTOS) 30 mg tablet 2018-08-23 00:00:00 2019 00:00:00 No Diabetes mellitus without complication 30mg QD Take 1 t ablet by mouth daily. [facility] ibuprofen (MOTRIN) 600 mg tablet 2018-08-13 00:00:00 Yes Chronic pain of left heel 600mg Take 1 tablet by mouth every 6 hours take with food. [facility] ibuprofen (MOTRIN) 800 mg tablet 2018-05-14 00:00:00 Yes Chronic pain of left knee 800mg Take 1 tablet by mouth every 8 hours as needed for Pain. [facility] Dextromethorphan-Guaifenesin (DIABETIC TUSSIN MAX ST) 10-200 mg/5 mL Liqd 2018-05-14 00:00:00 2019-05-11 00:00:00 No Viral URI with cough Take 10 ml po q4h prn x 7 days. [facility] ibuprofen (MOTRIN) 800 mg tablet 2018-04-14 00:00:00 Yes Dental infection 800mg Take 1 tablet by mouth every 8 hours as needed for Domenica n. [facility] lancets 28 gauge 2018-03-09 00:00:00 2019 00:00:00 No Non-insulin dependent type 2 diabetes mellitus by MISCELLANEOUS ro [facility] 2 times weekly. [facility] glipiZIDE (GLUCOTROL) 5 mg tablet 2018-03-09 00:00:00 2019 00:00:00 No Diabetes mellitus without complication 10mg Q.5D Take 2 tablets by mouth 2 times daily (before meals). [facility] lisinopril-[facility]othiazide (PRINZIDE, ZESTORETIC) 20-12. 5 mg per tablet 2018-03-09 00:00:00 2019-03-24 00:00:00 No Essential hypertensi on 1{tbl} QD Take 1 tablet by mouth daily. [facility] amLODIPine (NORVASC) 10 mg tablet 2018-03-09 00:00:00 2018 00:00:00 No Essential hypertension 10mg QD Take 1 tablet by mouth bruce y. [facility] metFORMIN (GLUCOPHAGE) 500 mg tablet 2018-03-09 00:00: 00 2019-03-22 00:00:00 No Diabetes mellitus without complication 500mg Take 1 tablet by mouth 2 times daily (with meals). [facility] blood glucose test strips 2018-03-09 00:00:00 2019-03-19 00: 00:00 No Non- insulin dependent type 2 diabetes mellitus 2 times weekly to test blood sugar. [facility] polyethylene glycol (GOLYTELY) 236-22.74-6.74 -5.86 gram ora l solution 2018-01-21 00:00:00 Yes Occult blood positive stool Add lukewarm drinking water to the fill sherman (4 liters) and shake. Drink as directed by your doctor.. [facility] glipiZIDE (GLUCOTROL) 5 mg tablet 2017-10-27 00:00:00 2019 00:00:00 No Diabetes mellitus without complication 10mg Q.5D Take 2 tablets by mouth 2 times daily (before meals). [facility] met[facility]MIN (GLUCOPHAGE) 500 mg tablet 2017-10-27 00:00: 00 2019-03-23 00:00:00 No Type 2 diabetes mellitus wit hout complication, without long-term current use of insulin 500mg QD Take 1 tablet by roberta th daily (with breakfast) If GI upset occurs, split in half and take with breakfast and the other half with supper.. [facility] cyclobenzaprine (FLEXERIL) 10 mg tablet 2017-07-16 00:00:00 Yes Tension headache 10mg Take 1 tablet by roberta th 3 times daily as needed for Muscle Spasms. [facility] ciclesonide (ZETONNA) 37 mcg/actuation nasal HFA inhaler 2016-05-27 00:00:00 2019-05-11 00:00:00 No Nasal congestion 1{spray} QD Use 1 [place] in each nostril daily. [facility] blood glucose meter 2016-04-04 00:00:00 Yes Non-insulin dependent type 2 diabetes mellitus Use as directed.. [facility] fsjgsumyr-xygxqzwy-jgetkegiq-simethicone (MAALOX +) 200 mg S prison 2015-09-14 00:00:00 Yes Nausea vomiting and diarrhea 30mL Take 30 mL by mouth every 4 hours as needed for Pain. [facility] electrolyte (PEDIALYTE) Soln 2015-09-09 00:00:00 Y es Infectious colitis, enteritis, and gastroenteritis 1{bottle} Take 1 Kevin ttle by mouth see administration instruction. [facility] clonazePAM (KLONOPIN) 0.5 mg tablet 2012-11-09 00:00:0 0 2019-04-23 00:00:00 No Anxiety state, unspecified .5mg T teja 1 tablet by mouth 2 times daily as needed for Anxiety. [facility] Amlodipine Besylate (Norvasc) 5 Mg TAB Amlodipine Besylate (Norv asc) 5 Mg TAB Yes 10 Daily [facility] Glipizide Glipizide Yes 10 Twice A Day [facility] Ibuprofen Ibuprofen Yes 800 Ever y 8 Hours as needed for Mild Pain (1- 3) Or Fever>100.8 [facility] Lisinopril/Hydrochlorothiazide (Lisinopril-Hctz 20-12. 5 Mg Tab) 1 Each TABLET Lisinopril/Hydrochlorothiazide (Lisinopril-Hctz 20-12.5 Mg Tab) 1 Each TABLET Yes 1 Daily [facility] Mag Hydrox/Al Hydrox/Simeth (Maalox Maximum Strength S prison) 355 Ml ORAL.SUSP Mag Hydrox/Al Hydrox/Simeth (Maalox Maximum Strength Susp) 355 Ml ORAL.SUSP Yes 30 Every 4 Hours as needed for Gi Upset [facility] Metformin Hcl Metformin Hcl Yes 500 Daily [facility] Pioglitazone Hcl (Actos*) 15 Mg TABLET Pioglitazone Hcl (Actos*) 15 Mg TABLET Yes 30 Daily [facility] Immunizations Ordered Immunization Name Filled Immunization Name Date Status Comments Source Influenza, Vaccine<FLUCELVAX>(Multi-Dose) 2019-01-18 00:00 :00 Completed [facility] Influenza, Vaccine<FLUCELVAX>(Multi-Dose) 2018-01-19 00:00 :00 Completed [facility] Influenza Vaccine 2015-01-23 00:00:00 Completed [facility] Influenza Vaccine 2013-12-29 00:00:00 Completed [facility] Vital Signs Vital Name Observation Time Observation Value Comments Source Body Temperature 2019-12-24 17:42:00 98.1 [degF] [facility] Weight 2019-12-24 15:48:00 179 [lb_av] [facility] BMI (Body Mass Index) 2019-12-24 15:48:00 33.8 kg/m2 [facility] Systolic blood pressure 2019-06-07 09:08:00 117 mm[Hg] [facility] Diastolic blood pressure 2019-06-07 09:08:00 60 mm[Hg] [facility] Heart rate 2019-06-07 09:08:00 73 /min [facility] Body temperature 2019-06-07 09:08:00 36.72 Jenny Olnnie [facility] Respiratory rate 2019-06-07 09:08:00 20 /min Lonnie [facility] Body height 2019-06-07 09:08:[address] [facility] Body weight 2019-06-07 09:08:[address] [facility] BMI 2019-06-07 09:08:00 34.64 kg/m2 [facility] Oxygen saturation in Arterial blood by Pulse oximetry 06-06 09:08:00 99 /min [facility] Procedures Procedure Date / Time Performed Performing Clinician Sour e HEMOGLOBIN A1C 2019 11:04:00 [facility] LIVER PROFILE 2019 11:04:00 [facility] LIPID PROFILE 2019 11:04:00 [facility] THYROID STIMULATING HORMONE (TSH) 2019 11:04:00 [facility]res [facility] HEMOCCULT KIT FOR SPECIMEN COLLECTION AT HOME 2019 10: 02:11 [facility] MAMMOGRAM BILAT SCREEN DIGITAL 2019 09:33:46 Cori Pérez [facility] Computed tomography of brain without radiopaque contrast 2019-12 00:00:00 [facility] BMP POC 2019-06-05 22:52:00 Genevieve, [facility]yna [facility] 2019-06-05 22:52:00 Genevieve Justyna [facility] CBC/DIFF 2019-06-05 22:42:00 [facility]on Nash [facility] CBC 2019-06-05 22:42:00 Yon Nash [facility] XRAY CHEST 2 VIEWS 2019-06-05 19:35:37 Skinny Atkins [facility] ECHG EKG PROC 12 LEAD EKG; TRACING ONLY 2019-06-05 18:36:18 Skinny Freeman [facility] GLUCOSE POC 2019-06-05 18:31:00 Unknown, Provider [facility] XRAY KNEES-BILATERAL WT. BEARING (AP/LAT/SUN) 2019-04-30 09: 37:56 Jacques Marcus [facility] XRAY UPPER GI W AIR CONTRAST 2019-04-27 09:42:58 Dino elliott [facility] HEMOGLOBIN A1C 2019-04-23 09:44:00 Parminder Pérez [facility] DIABETIC FOOT EXAM 2019-04-23 09:19:[address] [facility] Computed tomography of abdomen and pelvis with contrast 2019 00:00:00 DREW LION [facility] FECAL OCCULT BLOOD 2019-02-02 13:11:00 Rhoda Sales [facility] HEMOCCULT KIT FOR SPECIMEN COLLECTION AT HOME 2019-01-18 08: 35:06 michael Rhoda Brooks [facility] Plan of Care Planned Activity Planned Date Details Comments Source Future Scheduled Test 2020-12-26 00:00:00 Breast Cancer Scrn (Yearly) [code = Breast Cancer Scrn (Yearly)] [facility] Scheduled Test 2020-12-26 00:00:00 Hemoglobin A1c scott surement (procedure) [code = 02891676] [facility] Scheduled Test 2020-11-14 00:00:00 DM Retinal Exam (Y early) [code = DM Retinal Exam (Yearly)] [facility] Scheduled Test 2020-04-23 00:00:00 DM Foot Exam (Year ly) [code = DM Foot Exam (Yearly)] [facility] Scheduled Test 2020-02-03 00:00:00 Screening for guillermina gnzhang neoplasm of colon (procedure) [code = 789982294] [facility] Scheduled Test 2020-01-06 00:00:00 IMM Influenza Seas onal Jan to June (>/= 19 yrs) [code = IMM Influenza Seasonal Jan to June (>/= 19 yrs)] [facility] Scheduled Test 2017-02-14 00:00:00 Screening for guillermina gnant neoplasm of cervix (procedure) [code = 568166608] [facility] Instructions Diabetes and Diet [facility] Instructions Hypertension [facility] Encounters Start Date/Time End Date/Time Encounter Type Admission Type [facility] Care Department Encounter ID Source 2019-11-08 00:00:00 2019-11-08 00:00:00 Outpatient [facility] [id number] [facility] 2019-10-06 00:00:00 2019-10-06 00:00:00 Outpatient [facility] [id number] [facility] 2019-09-15 11:11:23 2019-09-15 11:11:23 Outpatient [facility] [id number] [facility] 2019-09-09 08:15:51 2019-09-09 08:15:51 Outpatient [facility] [id number] [facility] 2019-08-02 00:00:00 2019-08-02 00:00:00 Outpatient [facility] [id number] [facility] 2019-07-26 00:00:00 2019-07-26 00:00:00 Outpatient [facility] [id number] [facility] 2019-06-30 00:00:00 2019-06-30 00:00:00 Outpatient [facility] [id number] [facility] 2019-06-28 00:00:00 2019-06-28 00:00:00 Outpatient [facility] [id number] [facility] 2019-06-24 00:00:00 2019-06-24 00:00:00 Outpatient [facility] [id number] [facility] 2019-06-22 00:00:00 2019-06-22 00:00:00 Outpatient [facility] [id number] [facility] 2019-06-14 00:00:00 2019-06-14 00:00:00 Outpatient [facility] [id number] [facility] 2019-06-07 09:08:34 2019-06-07 09:08:34 Outpatient [facility] [id number] [facility] 2019-06-05 20:35:23 2019-06-05 20:35:23 Emergency [facility] [id number] [facility] 2019-06-05 19:25:40 2019-06-05 19:25:40 Emergency [facility] [id number] [facility] 2019-06-01 07:38:14 2019-06-01 07:38:14 Outpatient [facility] [id number] [facility] 2019-05-24 08:11:51 2019-05-24 08:11:51 Outpatient [facility] [id number] [facility] 2019-05-21 09:00:14 2019-05-21 09:00:14 Outpatient [facility] [id number] [facility] 2019-05-18 08:12:53 2019-05-18 08:12:53 Outpatient [facility] [id number] [facility] 2019-05-11 08:30:07 2019-05-11 08:30:07 Outpatient [facility] [id number] [facility] 2019-05-10 00:00:00 2019-05-10 00:00:00 Outpatient [facility] [id number] [facility] 2019-05-04 08:27:09 2019-05-04 08:27:09 Outpatient [facility] [id number] [facility] 2019-04-30 09:28:04 2019-04-30 09:28:04 Outpatient [facility] [id number] [facility] 2019-04-30 08:41:57 2019-04-30 08:41:57 Outpatient [facility] [id number] [facility] 2019-04-27 09:05:17 2019-04-27 09:05:17 Outpatient [facility] [id number] [facility] 2019-04-27 00:00:00 2019-04-27 00:00:00 Outpatient [facility] [id number] [facility] 2019-04-23 09:44:03 2019-04-23 09:44:03 Outpatient [facility] [id number] [facility] 2019-04-23 08:17:10 2019-04-23 08:17:10 Outpatient [facility] [id number] [facility] 2019-04-22 19:53:00 2019-04-23 00:30:00 Departed Emergency Room 1 DREW LION [facility] [id number] [facility] 2019-04-23 00:00:00 2019-04-23 00:00:00 Outpatient [facility] [id number] [facility] 2019-04-21 00:00:00 2019-04-21 00:00:00 Outpatient [facility] [id number] [facility] 2019-04-19 00:00:00 2019-04-19 00:00:00 Outpatient [facility] [id number] [facility] 2019-04-15 13:53:19 2019-04-15 13:53:19 Outpatient [facility] [id number] [facility] 2019-03-25 00:00:00 2019-03-25 00:00:00 Outpatient [facility] [id number] [facility] 2019-03-24 08:31:16 2019-03-24 08:31:16 Outpatient [facility] [id number] [facility] 2019-03-17 10:56:23 2019-03-17 10:56:23 Outpatient [facility] [id number] [facility] 2019-03-12 00:00:00 2019-03-12 00:00:00 Outpatient [facility] [id number] [facility] 2019-03-10 11:11:19 2019-03-10 11:11:19 Outpatient [facility] [id number] [facility] 2019-03-03 11:14:45 2019-03-03 11:14:45 Outpatient [facility] [id number] [facility] 2019-02-24 07:42:33 2019-02-24 07:42:33 Outpatient [facility] [id number] [facility] 2019-02-22 11:15:54 2019-02-22 11:15:54 Outpatient [facility] [id number] [facility] 2019-02-15 12:12:48 2019-02-15 12:12:48 Outpatient [facility] [id number] [facility] 2019-02-15 10:11:11 2019-02-15 10:11:11 Outpatient [facility] [id number] [facility] 2019-02-02 13:10:55 2019-02-02 13:10:55 Outpatient [facility] [id number] [facility] 2019-01-29 13:44:18 2019-01-29 13:44:18 Outpatient [facility] [id number] [facility] 2019-01-25 00:00:00 2019-01-25 00:00:00 Outpatient [facility] [id number] [facility] 2019-01-25 00:00:00 2019-01-25 00:00:00 Outpatient [facility] [id number] [facility] 2019-01-24 11:53:23 2019-01-24 11:53:23 Emergency [facility] [id number] [facility] 2019-01-18 08:19:31 2019-01-18 08:19:31 Outpatient [facility] [id number] [facility] 2019-01-07 00:00:00 2019-01-07 00:00:00 Outpatient [facility] [id number] [facility] 2018-12-31 07:54:39 2018-12-31 07:54:39 Outpatient [facility] [id number] [facility] 2018-12-24 00:00:00 2018-12-24 00:00:00 Outpatient [facility] [id number] [facility] 2018-12-17 14:04:33 2018-12-17 14:04:33 Outpatient [facility] [id number] [facility] 2018-12-17 14:01:05 2018-12-17 14:01:05 Outpatient [facility] [id number] [facility] 2018-11-23 00:00:00 2018-11-23 00:00:00 Outpatient [facility] [id number] [facility] 2018-11-16 10:44:52 2018-11-16 10:44:52 Outpatient [facility] [id number] [facility] 2018-11-12 00:00:00 2018-11-12 00:00:00 Outpatient [facility] [id number] [facility] 2018-11-11 09:08:48 2018-11-11 09:08:48 Outpatient [facility] [id number] [facility] 2018-11-09 15:49:28 2018-11-09 15:49:28 Outpatient [facility] [id number] [facility] 2018-11-09 15:20:44 2018-11-09 15:20:44 Outpatient [facility] [id number] [facility] 2018-11-09 00:00:00 2018-11-09 00:00:00 Outpatient [facility] [id number] [facility] 2018-11-02 14:54:07 2018-11-02 14:54:07 Outpatient [facility] [id number] [facility] 2018-10-30 12:51:00 2018-10-30 16:16:00 Departed Emergency Room 1 RON MALHOTRA [facility] [id number] [facility] 2018-10-01 00:00:00 2018-10-01 00:00:00 Outpatient [facility] [id number] [facility] 2018-09-28 23:10:00 2018-09-29 03:08:00 Departed Emergency Room 1 DREW LION [facility] [id number] [facility] 2018-08-13 08:34:50 2018-08-13 08:34:50 Outpatient [facility] [id number] [facility] 2018-07-20 08:41:51 2018-07-20 08:41:51 Outpatient [facility] [id number] [facility] 2018-06-29 08:50:58 2018-06-29 08:50:58 Outpatient [facility] [id number] [facility] 2018-06-29 08:07:53 2018-06-29 08:07:53 Outpatient [facility] [id number] [facility] 2018-06-22 00:00:00 2018-06-22 00:00:00 Outpatient [facility] [id number] [facility] 2018-05-28 10:56:35 2018-05-28 10:56:35 Outpatient [facility] [id number] [facility] 2018-05-18 08:18:52 2018-05-18 08:18:52 Outpatient [facility] [id number] [facility] 2018-05-14 15:41:49 2018-05-14 15:41:49 Outpatient [facility] [id number] [facility] 2018-05-14 00:00:00 2018-05-14 00:00:00 Outpatient [facility] [id number] [facility] 2018-05-11 00:00:00 2018-05-11 00:00:00 Outpatient [facility] [id number] [facility] 2018-05-04 08:40:20 2018-05-04 08:40:20 Outpatient [facility] [id number] [facility] 2018-04-14 09:08:23 2018-04-14 09:08:23 Outpatient [facility] [id number] [facility] 2018-04-13 09:53:22 2018-04-13 09:53:22 Outpatient [facility] [id number] [facility] 2018-03-16 00:00:00 2018-03-16 00:00:00 Outpatient [facility] [id number] [facility] 2018-03-09 14:19:23 2018-03-09 14:19:23 Outpatient [facility] [id number] [facility] 2018-03-09 13:52:50 2018-03-09 13:52:50 Outpatient [facility] [id number] [facility] 2018-01-28 09:31:03 2018-01-28 09:31:03 Outpatient [facility] [id number] [facility] 2018-01-26 00:00:00 2018-01-26 00:00:00 Outpatient [facility] [id number] [facility] 2018-01-21 12:47:38 2018-01-21 12:47:38 Outpatient [facility] [id number] [facility] 2018-01-19 11:10:26 2018-01-19 11:10:26 Outpatient [facility] [id number] [facility] 2018-01-19 10:00:29 2018-01-19 10:00:29 Outpatient [facility] [id number] [facility] 2018-01-13 00:00:00 2018-01-13 00:00:00 Outpatient [facility] [id number] [facility] 2017-12-18 08:10:35 2017-12-18 08:10:35 Outpatient [facility] [id number] [facility] 2017-10-31 11:03:59 2017-10-31 11:03:59 Outpatient [facility] [id number] [facility] 2017-10-27 08:59:27 2017-10-27 08:59:27 Outpatient [facility] [id number] [facility] 2017-10-27 08:02:54 2017-10-27 08:02:54 Outpatient [facility] [id number] [facility] 2017-09-19 08:50:11 2017-09-19 08:50:11 Outpatient [facility] [id number] [facility] 2017-09-08 07:18:49 2017-09-08 07:18:49 Outpatient [facility] [id number] [facility] 2017-08-25 10:15:27 2017-08-25 10:15:27 Outpatient [facility] [id number] [facility] 2017-08-25 09:22:14 2017-08-25 09:22:14 Outpatient [facility] [id number] [facility] 2017-08-12 10:55:38 2017-08-12 10:55:38 Outpatient [facility] [id number] [facility] 2017-07-16 18:47:48 2017-07-16 18:47:48 Outpatient [facility] [id number] [facility] 2017-07-14 09:20:12 2017-07-14 09:20:12 Outpatient [facility] [id number] [facility] 2017-07-14 08:22:00 2017-07-14 08:22:00 Outpatient [facility] [id number] [facility] 2016-12-12 08:36:36 2016-12-12 08:36:36 Outpatient [facility] [id number] [facility] 2016-12-12 08:00:23 2016-12-12 08:00:23 Outpatient [facility] [id number] [facility] 2016-12-02 00:00:00 2016-12-02 00:00:00 Outpatient [facility] [id number] [facility] Results Test Description Test Time Test Comments Results Result Comments Source Hemoglobin A1C 2019-12-28 00:52:00 Test Item Hemoglobin A1c (test code = 4548-4) 12.0 % 4.3-6.1 H Estimated Average Glucose (test code = 48051647) 298 mg/dL 70-11 0 H Lab Interpretation (test code = 88896-5) [facility]]2019 17:30:00* Test Item Value Reference Range Interpretation Comments TSH (test code = 97113756) 1.31 0.45- 5.33 uIU/mL If , please see the following reference ranges (not verified by lab): 1st Trimester: 0.05 -3.70 uIU/mL2nd Trimester: 0.31 -4.35 uIU/mL3rd Trimester: 0.41 - 5.18 uIU/mL Lab Interpretation (test code = 68253-0) Normal [facility] Kfkrfag7204-06-83 17:24:00* Test Item Value Reference Range Interpretation Comments Cholesterol (test code = 2093-3) 228.0 mg/dL <=200.0 H Triglyceride (test code = 40389249) 192 mg/dL <150 H HDL (test code = 2085-9) 37.0 mg/dL See Reference Range Narrative . LDL (test code = 14259-7) 153 mg/dL <100 H Op timal: < 100.0 mg/dLNear Optimal: 120-129 mg/dLBorderline: 130-159 mg/dLHigh: 160-189 mg/dLVery High: >=190 mg/dL Patient Fasting? (test code = 83058584) Yes Lab Interpretation (test code = 63080-9) Abnormal [facility] [id number] 17:24:00* Test Item Value Reference Range Interpretation Comments Bilirubin, Total (test code = 2885-2) 0.5 mg/dL 0.2-1.2 Alkaline Phosphatase (test code = 37049143) 71 U/L 34-104 AST (test code = 73176220) 29 U/L 13-39 Direct Bilirubin (test code = 1968-7) 0.1 mg/dL 0-0.2 ALT (test code = 56363773) 32 U/L 7-52 Albumin (test code = 90129-3) 4.1 g/dL 3.7-5.3 Lab Interpretation (test code = 79212-5) Normal [facility] [id number] 14:03:00IMPRESSION: INCOMPLETE: NEEDS ADDITIONAL IMAGING EVALUATIONThe 0.9 cm coarse heterogeneous calcifications with questionable assocated focal asymmetry in the right breast is indeterminate. 3D imaging view as well as a possible ultrasound and magnification views are recommended for further evaluation. I have reviewed the study and agree with the findings in the report.This document has been electro nically signed. Harinder Lay M.D.lg,jf/:2019 14:03: 43 copy to: Rhoda Sales [place] , ph: Imaging Techno logist: STEF BLACK [facility] Centerletter sent: Additional Imaging Nee ded Mammogram BI-RADS: 0 Indeterminate G0202 z12.31Interface, Rad/Mammog In - 12/28/2019 1:31 PM CDT#[id number] - MAMMOGRAM BILAT SCREEN DIGITALBILATERAL DIGI ARIANE SCREENING MAMMOGRAM WITH CAD: 2019CLINICAL: Screening. Comparison is m adelaida to exams dated: 09/19/2017 [place], 06/03/2016, 02/20/2015 [facility], 01/20/2014, and 06/08/2009 [place]. There are scattered fibroglandular el ements in both breasts that could obscure a lesion on mammography. Current stud y was also evaluated with a Computer Aided Detection (CAD) system. There is a 0 .9 cm group of coarse heterogeneous calcifications with questionable associated focal asymmetry in the right breast at 12 o'clock middle depth. These are more prominent when compared to prior imaging. Additional benign calcifications are present in the both breasts.IMPRESSIONIMPRESSION: INCOMPLETE: NEEDS ADDITIONAL IMAGING EVALUATIONThe 0.9 cm coarse heterogeneous calcifications with questionab le assocated focal asymmetry in the right breast is indeterminate. 3D imaging vi ew as well as a possible ultrasound and magnification views are recommended for further evaluation.I have reviewed the study and agree with the findings in the report.This document has been electronically signed.Harinder Lay M.D.lg,jf/:2019 14:03:43 copy to: Rhoda Sales, [facility] , ph: Imaging Technologist: STEF BLACK, [facility] letter sent: Additional Imaging Needed Mammogram BI-RADS: 0 Indeterminate G02 02 z12.31[facility] BRAIN [id number] 18:29:00 [place] [address] Patient Name: SHANTEL NEWMAN MR #: [id number] : 1965 Age/Sex: 53/F Req #: [id number] Adm Physician: Ordered by: RON ZUNIGA DO Report #: [id number] Location: ER Room/Bed: Procedure: 917- 9 CT/CT BRAIN WO Exam Date: 12/24/19 Exam Time: 1714 REPORT STATUS: Signed Examinati on: CT BRAIN WO History: Y dizzy 20191224 Comparison studies:None Technique: Axial images were obtained from the skull base to the vertex. Coronal and sagittal images reconstructed from the axial data. Dose modulat ion, iterative reconstruction, and/or weight based adjustment of the mA/kV was utilized to reduce the radiation dose to as low as reasonably achievable. Intravenous contrast: None Findings: Scalp: No abnormalities. Bones: No fractures, blastic or lytic lesions. Brain sulci: Appropriate for age. Ventricles: Normal in size and configuration. No hydrocephalus. Extra-axial space: No abnormalities. Parenchyma: No abnormal densities. No m asses, hemorrhage, or acute or chronic cortical based vascular insults.. Se llar/suprasellar region: No abnormalities. Craniocervical junction: Patent for amen magnum. No Chiari one malformation. Incidental findings: None. Impression: No intracranial abnormalities. Signed by: Dr. Josee bang M.D. on 12/24/2019 6:30 PM Dictated By: JOSEE Llanes 29 Trans cribed By: MIHIR on 12/24/191829 COPY TO: RON ZUNIGA DO Blood leukocytes automated count (number/volume)2019-12-24 16:00:00* Test Item Value Reference Range Interpretation Comments White Blood Count (test code = 6690-2) 6.74 4.8-10.8 [facility] automated count (number/volume)2019-12-24 16:00:00* Test Item Value Reference Range Interpretation Comments Red Blood Count (test code = 789-8) 4.22 3.6-5.1 [facility] hemoglobin measurement (moles/volume)2019-12-24 16:00:00* Test Item Value Reference Range Interpretation Comments Hemoglobin (test code = 05850-7) 13.3 12.0-16.0 [facility] ResourcesAutomated blood hematocrit (volume fraction)2019-12-24 16:00:00* Test Item Value Reference Range Interpretation Comments Hematocrit (test code = 4544-3) 39.0 34.2-44.1 [facility] ResourcesAutomated erythrocyte mean corpuscular dqotwz7595-98-53 16:00:00* Test Item Value Reference Range Interpretation Comments Mean Corpuscular Volume (test code = 787-2) 92.4 81-99 [facility]Autom[facility] erythrocyte mean corpuscular hemoglobin (mass per erythrocyte)2019-12-24 16:00:00* Test Item Value Reference Range Interpretation Comments Mean Corpuscular Hemoglobin (test code = 785-6) 31.5 28-32 [facility]Autom[facility] erythrocyte mean corpuscular hemoglobin concentration measurement (mass/volume)2019-12-24 16:00:00* Test Item Value Reference Range Interpretation Comments Mean Corpuscular Hemoglobin Concent (test code = 786-4) 34.1 31-35 [facility] ResourcesRDW JyvQq-Jfl6814-54-18 16:00:00* Test Item Value Reference Range Interpretation Comments Red Cell Distribution Width (test code = 63300-3) 13.3 11.7 -14.4 [facility]Autom[facility] blood platelet count (count/volume)2019-12-24 16:00:00* Test Item Value Reference Range Interpretation Comments Platelet Count (test code = 777-3) 254 140-360 [facility] ResourcesAutcarolinas continuecare [facility] at pinevilleed blood segmented neutrophil count as percentage of total wqhgadhjvk8239-93-58 16:00:00* Test Item Value Reference Range Interpretation Comments Neutrophils (%) (Auto) (test code = 61509-4) 55.8 38.7-80.0 [facility] ResourcesAutomated blood lymphocyte count as percentage ot total wgfbezrvzp5578-82-82 16:00:00* Test Item Value Reference Range Interpretation Comments Lymphocytes (%) (Auto) (test code = 736-9) 36.1 18.0-39.1 [facility] ResourcesAutomated blood monocyte count as percentage of total qayatfwvzo8598-58-15 16:00:00* Test Item Value Reference Range Interpretation Comments Monocytes (%) (Auto) (test code = 5905-5) 6.1 4.4-11.3 [facility] ResourcesAutom[facility] blood eosinophil count as percentage of total fzgclcwjaa8114-11-93 16:00:00* Test Item Value Reference Range Interpretation Comments Eosinophils (%) (Auto) (test code = 713-8) 1.2 0.0-6.0 [facility] ResourcesAutom[facility] blood basophil count as percentage of total zxdtapmtfk8574-75-22 16:00:00* Test Item Value Reference Range Interpretation Comments Basophils (%) (Auto) (test code = 706-2) 0.4 0.0-1.0 [facility] ResourcesFluoroscopic procedure less than one hour teyyidxg6011-73-26 16:00:00* Test Item Value Reference Range Interpretation Comments IM GRANULOCYTES % (test code = IM GRANULOCYTES %) 0.4 0.0- 1.0 [facility] ResourcesAutomated blood neutrophil count 2019-12-24 16:00:00* Test Item Value Reference Range Interpretation Comments Neutrophils # (Auto) (test code = 751-8) 3.8 2.1-6.9 [facility]Blood lymphocytes count (number/volume) 2019-12-24 16:00:00* Test Item Value Reference Range Interpretation Comments Lymphocytes # (Auto) (test code = 37732-4) 2.4 1.0-3.2 [facility]Blood monocytes automated count (number/volume)2019-12-24 16:00:00* Test Item Value Reference Range Interpretation Comments Monocytes # (Auto) (test code = 742-7) 0.4 0.2-0.8 [facility] ResourcesAutomated blood eosinophil count 2019-12-24 16:00:00* Test Item Value Reference Range Interpretation Comments Eosinophils # (Auto) (test code = 711-2) 0.1 0.0-0.4 [facility] ResourcesAutomated blood basophil count (count/volume)2019-12-24 16:00:00* Test Item Value Reference Range Interpretation Comments Basophils # (Auto) (test code = 704-7) 0.0 0.0-0.1 [facility] ResourcesFluoroscopic procedure less than one hour gypqocpb3391-52-88 16:00:00* Test Item Value Reference Range Interpretation Comments Absolute Immature Granulocyte (auto (jolene t code = Absolute Immature Granulocyte (auto) 0.03 0-0.1 [facility] sodium measurement (moles/volume)2019-12-24 16:00:00* Test Item Value Reference Range Interpretation Comments Sodium Level (test code = 2951-2) 141 136-145 [facility]ererum [facility] plasma potassium measurement (moles/volume)2019-12-24 16:00:00* Test Item Value Reference Range Interpretation Comments Potassium Level (test code = 2823-3) 3.9 3.5-5.1 [facility]ererum or plasma chloride measurement (moles/volume)2019-12-24 16:00:00* Test Item Value Reference Range Interpretation Comments Chloride Level (test code = 2075-0) 108 98-107 [facility]ererum or plasma carbon dioxide, total measurement (moles/volume)2019-12-24 16:00:00* Test Item Value Reference Range Interpretation Comments Carbon Dioxide Level (test code = 2028-9) 23 22-29 [facility]ererum or plasma anion cjy7414-52-51 16:00:00* Test Item Value Reference Range Interpretation Comments Anion Gap (test code = 90162-4) 13.9 8-16 [facility]ererum or plasma urea nitrogen measurement (mass/volume)2019-12-24 16:00:00* Test Item Value Reference Range Interpretation Comments Blood Urea Nitrogen (test code = 3094-0) 13 7-26 [facility] Centererum or plasma creatinine measurement (mass/volume)2019-12-24 16:00:00* Test Item Value Reference Range Interpretation Comments Creatinine (test code = 2160-0) 0.82 0.57-1.11 [facility] Centererum or plasma urea nitrogen/creatinine mass xfnia1614-11-85 16:00:00* Test Item Value Reference Range Interpretation Comments BUN/Creatinine Ratio (test code = 3097-3) 16 6-25 [facility] ResourcesEstimated glomerular filtration rate (GFR) lgpkidadyhkwa7040-66-08 16:00:00* Test Item Value Reference Range Interpretation Comments Estimat Glomerular Filtration Rate (test code = 328355592) > 60 >60 Ranges were taken from the National Kidney Disease Education Program and the [facility] Foundation literature.Reference ranges:60 or greater: Wovpqd96-59 ( for 3 consecutive months): Chronic kidney disease 15 or less: Kidney failureJoint [facility] between [facility] ResourcesGlucose qxqqprzecsd2305-10-73 16:00:00* Test Item Value Reference Range Interpretation Comments Glucose Level (test code = URO4415) 174 74-118 [facility]ererum or plasma calcium measurement (mass/volume)2019-12-24 16:00:00* Test Item Value Reference Range Interpretation Comments Calcium Level (test code = 11231-3) 9.4 8.4-10.2 [facility] total bilirubin measurement (mass/volume)2019-12-24 16:00:00* Test Item Value Reference Range Interpretation Comments Total Bilirubin (test code = 1975-2) 0.4 0.2-1.2 [facility] ResourcesFluoroscopic procedure less than one hour tenykmip9501-11-68 16:00:00* Test Item Value Reference Range Interpretation Comments Aspartate Amino Transf (AST/SGOT) (test code = Aspartate Amino Transf (AST/SGOT)) 34 5-34 [facility] plasma alanine aminotransferase measurement (enzymatic activity/volume)2019-12-24 16:00:00* Test Item Value Reference Range Interpretation Comments Alanine Aminotransferase (ALT/SGPT) (test code = 1742-6) 39 0-55 [facility] plasma protein measurement (mass/volume)2019-12-24 16:00:00* Test Item Value Reference Range Interpretation Comments Total Protein (test code = 2885-2) 7.6 6.5-8.1 [facility] plasma albumin measurement (mass/volume)2019-12-24 16:00:00* Test Item Value Reference Range Interpretation Comments Albumin (test code = 1751-7) 4.3 3.5-5.0 [facility] ResourcesPlasma globulin measurement (mass/volume) 2019-12-24 16:00:00* Test Item Value Reference Range Interpretation Comments Globulin (test code = 97506-1) 3.3 2.3-3.5 [facility] albumin/globulin mass deybq6771-73-95 16:00:00* Test Item Value Reference Range Interpretation Comments Albumin/Globulin Ratio (test code = 1759-0) 1.3 0.8-2.0 [facility]ererum or plasma alkaline phosphatase measurement (enzymatic activity/volume)2019-12-24 16:00:00* Test Item Value Reference Range Interpretation Comments Alkaline Phosphatase (test code = 6768-6) 92 40-150 [facility] ResourcesBNP Oio-vAut6540-74-18 16:00:00* Test Item Value Reference Range Interpretation Comments B-Type Natriuretic Peptide (test code = 00352-3) 26.9 0-100 [facility]12 LEAD RDT1141-70-86 16:11:5912 LEAD EKG FOR P [facility] Test Date: 7137-45-21Zva Name: SHANTEL NEWMANDepartment: 6520Patient ID: [id number] Room: Gender: F Director Hematology: ASDOB: 1965 Requested By: SKINNY ATKINS BOrder Number: [id number] Reading MD: Raymundo Reina MeasurementsIntervals [place] Rate: 91 P: 57PR: 147 QRS: 38QRSD: 77 T: 55QT: 344 QTc: 423 Interp retive StatementsSINUS RHYTHMPOSSIBLE LEFT ATRIAL ENLARGEMENTNONSPECIFIC ST & T- WAVE ABNORMALITYElectronically Signed On 06-07-2019 16:11:58 MOTION PICTURE PHOTOGRAPHER by Raymundo Brody [facility]/Dhzk1193-61-76 23:26:00* Test Item Value Reference Range Interpretation Comments WBC (test code = 6690-2) 11.0 K/uL 4.5-11 RBC (test code = 789-8) 3.89 4.20- 5.40 M/uL L Hemoglobin (test code = 718-7) 12.2 g/dL 12-16 Hematocrit (test code = 4544-3) 37.4 % 37-47 MCV (test code = 787-2) 96.1 fL 82-92 H MCH (test code = 785-6) 31.4 pg 27-32 MCHC (test code = 786-4) 32.6 g/dL 32-36 RDW (test code = 58854-6) 46.7 fL 36.4-46.3 H Platelet (test code = 777-3) 290 K/uL 150-400 Mean Platelet Volume (test code = 24710-1) 10.2 fL 9.4-12.4 Percent NRBC (test code = 75997570) 0.0 % Neutrophil (test code = 770-8) 67.7 % 34-70 Lymphs (test code = 736-9) 22.5 % 20-50 Monocytes (test code = 5905-5) 8.4 % 5-12 Eos (test code = 713-8) 0.5 % 0.7-5 L Basos (test code = 706-2) 0.4 % 0.1-1.2 Immature Granulocytes (test code = 31312646) 0.5 % 0-0.5 Neutrophils (Absolute) (test code = 50058805) 7.43 K/uL 1.56-6.1 3 H Lymphs (Absolute) (test code = 47659434) 2.47 K/uL 1.18-3.74 Monocytes(Absolute) (test code = 17060747) 0.92 K/uL 0.24-0.36 H Eos (Absolute) (test code = 45074405) 0.05 K/uL 0.04-0.36 Baso (Absolute) (test code = 43773588) 0.04 K/uL 0.01-0.08 Immature Grans (Abs) (test code = 27808451) 0.05 K/uL 0-0.03 H Absolute NRBC (test code = 94456644) 0.00 K/uL Lab Interpretation (test code = 19379-3) Abnormal [facility] BMP POC docked mpuyke0147-90-68 22:55:00* Test Item Value Reference Range Interpretation Comments Sodium POC (test code = 13301562) 139 mmol/L 136-145 Potassium POC (test code = 02993891) 4.0 mmol/L 3.5-5.1 Chloride POC (test code = 29064763) 105 mmol/L 98-107 TCO2 POC (test code = 43885905) 27 mmol/L 21-32 Urea Nitrogen POC (test code = 95971336) 23 mg/dL 7-18 H Glucose POC (test code = 51663962) 169 mg/dL 74-106 H Hemoglobin POC (test code = 05091863) 12.6 g/dL 12-16 Hematocrit POC (test code = 71186670) 37.0 % 37-47 Lab Interpretation (test code = 02187-8) Abnormal [facility] CREATININE POC docked dumgdj8685-04-81 22:55:00* Test Item Value Reference Range Interpretation Comments Creatinine POC (test code = 84767076) 0.6 mg/dL 0.6-1.3 GFR, Estimated (test code = 21131181) >90 >=90 mL/min/1.73 m2 Lab Interpretation (test code = 42958-1) [facility] [id number] 20:04:48IMPRESSION: No acute cardiopulmonary abnormality. This [facility] radiology report is a preliminary resident dictation untilfinalized by an attending. Changes to this preliminary report may occurin an additional preliminary or finalized version. I have reviewed the study and agree with the findings in this report. Signed By: Karl Perez MD, 06/05/2019 8:04 PM Interface, Rad/Mammog In - 06/05/2019 8:09 PM CSTEXAM: XR CHEST 2 VIEWSDATE: 06/05/2019 7:35 PM INDICATION: cough. Co ugh COMPARISON: Chest radiograph dated 04/16/2012TECHNIQUE: PA and lateral chest radiographsFINDINGS:Lines, tubes and hardware: None. Lungs and pleura: No pul monary edema. The lungs are clear. Thecostophrenic sulci are sharp, without pleu ral effusion. No pneumothoraxis identified.Heart and mediastinum: The heart size is normal for technique. Themediastinal contours are normal. Bones and soft tis sues: No acute abnormality.IMPRESSIONIMPRESSION: No acute cardiopulmonary abnor mality.This [facility] radiology report is a preliminary resident dictation untilfinal ized by an attending. Changes to this preliminary report may occurin an additio nal preliminary or finalized version.I have reviewed the study and agree with th e findings in this report.Signed By: Karl Perez MD, 06/05/2019 8:04 [facility] lhkscy7686-67-57 18:33:00* Test Item Value Reference Range Interpretation Comments Glucose POC (test code = 85225119) 128 mg/dL 74-106 H Lab Interpretation (test code = 55041-8) [facility] WT. BEARING (AP/LAT/SUN)2019-04-30 10:28:21 IMPRESSION: 1. Right knee: No radiographic evidence for osteoarthrosis.2. Left knee: No radiographic evidence for osteoarthrosis. This [facility] radiology report is a preliminary resident dictation untilfinalized by an attending. Changes to t his preliminary report may occurin an additional preliminary or finalized versio n. Dictated By: Kenn Mancini MD, 04/30/2019 10:13 AM I have reviewed the casey dy and agree with the findings in this report. Signed By: Geoff Galeano MD, 10:28 AM Interface, Rad/Mammog In - 04/30/2019 10:33 AM CSTEXAM: XR BILA TERAL KNEE 3 VIEWSDATE: 04/30/2019 9:38 AM INDICATION: assess for bilateral knee arthritis. Rupture of anteriorcruciate ligament of left knee, subsequent encoun ter COMPARISON: Knee radiographs on 12/17/2018TECHNIQUE: Weight-bearing AP, and lateral views of the bilateral kneesDISCUSSION: No acute fracture or malalignme nt is identified.Right knee: There is no osteophyte formation. Joint spaces are preservedin all three compartments. No additional findings of osteoarthrosis are present. No knee joint effusion is identified.Left knee: There is no osteophyte formation. Joint spaces are preservedin all three compartments. No additional fi ndings of osteoarthrosis arepresent. No knee joint effusion is identified.No sof t tissue abnormality is identified.IMPRESSIONIMPRESSION: 1. Right knee: No radi ographic evidence for osteoarthrosis.2. Left knee: No radiographic evidence for osteoarthrosis.This [facility] radiology report is a preliminary resident dictation u ntilfinalized by an attending. Changes to this preliminary report may occurin a n additional preliminary or finalized version.Dictated By: Kenn Mancini MD, 04/30/2019 10:13 AMI have reviewed the study and agree with the findings in this report.Signed By: Geoff Galeano MD, 04/30/2019 10:28 [facility] UPPER GI W AIR [id number] 16:23:20IMPRESSION: Normal hiatal hernia with mild gastroesophageal reflux. If the report is "FINALIZED" it indicates that the attending/staffradiologist has reviewed the images and agrees with the resident'sinterpretation. Dictated By: Fer Stoddard MD, 04/27/2019 2:46 PM I have reviewed the study and agree with the findings in this report. Signed By: Daniel Jarrett MD, 04/27/2019 4:23 PM Interface, Rad/Mammog In - 04/27/2019 4:28 PM CSTEXAM: DOUBLE CONTRAST UPPER GI SERIES INDICATION: epigastric pain COMPARISON: CT abdomen pelvis on 05/12/2014.TECHNIQUE: Effervescent granules and barium were swallowed by mouth andfluoroscopy was performed of the UGI tract and documented with spotfilms. RADIATION DOSE: Fluoroscopy Time: 2.1 min Dose Area Product: 18.5 Gycm2 Cumulative Air Kerma: 75.8 mGyFINDINGS: ESOPHAGUS: Motility: Within normal limits. Mucosa: Unremarkable. Distensibility: Normal.GASTROESOPHAGEAL JUNCTION: Small hiatal hernia .GASTROESOPHAGEAL REFLUX: Mild gastroesophageal reflux.STOMACH: Normally distens ible and demonstrates normal contours andmucosal pattern. DUODENUM: Bulb and sw eep are normal.Duodenal-jejunal junction is in the normal expected position.IMPR ESSIONIMPRESSION: Normal hiatal hernia with mild gastroesophageal reflux.If the report is "FINALIZED" it indicates that the attending/staffradiologist has revie wed the images and agrees with the resident'sinterpretation.Dictated By: Fer Stoddard MD, 04/27/2019 2:46 PMI have reviewed the study and agree with the findings in this report.Signed By: Daniel Jarrett MD, 04/27/2019 4:23 [facility] DIABETIC FOOT [id number] 09:19:41Parminder Pérez MD 04/27/2019 12:02 PMDiabetic Foot Exam was performed at 04/23/2019 9:23 AM. Right foot sensation is normal, right foot pulses are normal, right foot appearance is normal. Left foot sensation is normal, left foot pulses are normal, left foot appearance is normal. [facility] ABDOMEN/PELVIS [id number] 00:37:00 [place] [address] Patient Name: SHANTEL NEWMAN MR #: [id number] DO B: 1965 Age/Sex: 53/F 699 Req #: [id number] Adm Physician: Ordered by: DREW LION MD Report #: [id number] Location: ER Room/Bed: Proced ure: [id number] CT/CT ABDOMEN/PELVIS W Exam Date: 04/22/19 Exam Time: 2330 REPORT STATUS: Signed EXAMINATION: CT of the abdomen and pelvis with contrast. TECHNI QUE: Spiral CT images of the abdomen and pelvis were performed from the lung bases to the lesser trochanters after the intravenous administration of 100 cc of Isovue 370 and the oral administration of water. Coronal and sagittal r eformatted images were obtained. COMPARISON: None. CLINICAL HISTORY:A bdominal pain, nausea and vomiting and epigastric pain for 3 days DI SCUSSION: ABDOMEN/PELVIS: LOWER THORAX:Mild left lower lobe dependent atelectasis. Subsegmental atelectasis in the posterior left lower lobe HE PATOBILIARY: Diffusely decreased attenuation of the hepatic parenchyma compare d to the spleen, consistent with steatosis. No focal lesions. No intra or ext rahepatic biliary ductal dilation. GALLBLADDER: 5 mm calcified stone in the gallbladder lumen. No wall thickening or pericholecystic fluid. SPLEEN: No splenomegaly. PANCREAS: No focal masses or ductal dilatation. No peripan creatic inflammatory changes, free fluid or fluid collections. ADRENALS: 1.1 cm nodule in the left adrenal gland (series 2, image 23).Right adrenal gla nd is unremarkable. KIDNEYS/URETERS: Symmetrical renal enhancement. No j carlos l or ureteral calculi, hydronephrosis or obstruction. No solid enhancing lesio n. 1.9 cm partially exophytic hypodense lesion right superior to mid aspect, w hich measures approximately 24-27 HU PELVIC ORGANS/BLADDER: Bladder and u terus are unremarkable. No adnexal masses. PERITONEUM/RETROPERITONEUM: No f ree air or fluid. LYMPH NODES: No intra-abdominal, retroperitoneal, pelvic or inguinal lymphadenopathy. VESSELS: The celiac trunk,superior and infer ior mesenteric and bilateral renal arteries are patent The portal, superior mesenteric and splenic veins are patent. Mild atherosclerotic calcification of the abdominal aorta and proximal vessels. GI TRACT: No bowel dilation or evidence of obstruction. No pericolonic inflammatory changes. Appendix is unr emarkable. Stomach is moderately distended but grossly unremarkable. BONE S AND SOFT TISSUE: No aggressive lytic lesions. No soft tissue abnormalities . IMPRESSION: 1. No acute abdominopelvic abnormalities. No bowel di lation or evidence of obstruction. 2. Cholelithiasis, without evidence of ch olecystitis. 3. Diffuse hepatic tendinosis. No focal lesions. 4. Indetermina te 1.1 cm nodule in the left adrenal gland. Recommend CT of abdomen with adren al mass protocol on a nonemergent basis for evaluation. 5. 1.9 cm partially ex ophytic cystic lesion in the superior to mid right kidney, which does not maycol ure simple fluid. This likely represents a mildly proteinaceous cyst and can b e further assessed with renal ultrasound on a nonemergent basis. Signed b y: Dr. Farhan Madden M.D. on 04/23/2019 12:49 AM Dictated By: FARHAN MADDEN MD Transc ribed By: MIHIR on 04/23/1949 COPY TO: DREW LION MD Creatine Kinase [id number] 22:17:00* Test Item Value Reference Range Interpretation Comments Creatine Kinase MB (test code = 84035-4) 0.70 0-5.0 [facility] ResourcesTroponin [id number] 22:17:00* Test Item Value Reference Range Interpretation Comments Troponin I (test code = FTX5896) 0.001 0-0.300 [facility] ResourcesUrine [id number] 22:14:00* Test Item Value Reference Range Interpretation Comments Urine WBC (test code = 5821-4) NONE 0-5 [facility] ResourcesUrine [id number] 22:14:00* Test Item Value Reference Range Interpretation Comments Urine RBC (test code = 38885-5) NONE 0-5 [facility] ResourcesUrine Jnvyldxv8069-15-79 22:14:00* Test Item Value Reference Range Interpretation Comments Urine Bacteria (test code = 31839-7) MANY NONE H [facility] ResourcesUrine Epithelial [id number] 22:14:00 * Test Item Value Reference Range Interpretation Comments Urine Epithelial Cells (test code = 56009-7) FEW NONE [facility] Centerodium Bkwyh3034-03-25 22:11:00* Test Item Value Reference Range Interpretation Comments Sodium Level (test code = 2951-2) 136 136-145 [facility] ResourcesPotassium Euwki9333-78-62 22:11:00* Test Item Value Reference Range Interpretation Comments Potassium Level (test code = 2823-3) 4.1 3.5-5.1 [facility] ResourcesChloride Brjhu9820-93-43 22:11:00* Test Item Value Reference Range Interpretation Comments Chloride Level (test code = 2075-0) 105 98-107 [facility] ResourcesCarbon Dioxide Qimyk5427-86-24 22:11:00* Test Item Value Reference Range Interpretation Comments Carbon Dioxide Level (test code = 2028-9) 21 22-29 L [facility] ResourcesAnion Ett9999-38-11 22:11:00* Test Item Value Reference Range Interpretation Comments Anion Gap (test code = 32079-4) 14.1 8-16 [facility] ResourcesBlood Urea Ftagjeuu5656-18-74 22:11:00* Test Item Value Reference Range Interpretation Comments Blood Urea Nitrogen (test code = 3094-0) 15 7-26 [facility] ResourcesCreatinine2020-01-16 22:11:00* Test Item Value Reference Range Interpretation Comments Creatinine (test code = 2160-0) 0.78 0.57-1.11 [facility] ResourcesBUN/Creatinine Xuehy9539-85-47 22:11:00* Test Item Value Reference Range Interpretation Comments BUN/Creatinine Ratio (test code = 3097-3) 19 6-25 [facility] ResourcesEstimat Glomerular Filtration Rate 2019-04-22 22:11:00* Test Item Value Reference Range Interpretation Comments Estimat Glomerular Filtration Rate (test code = 028616752) > 60 >60 Ranges were taken from the National Kidney Disease Education Program and the [facility] Foundation literature.Reference ranges:60 or greater: Etvgqr21-92 ( for 3 consecutive months): Chronic kidney disease 15 or less: Kidney failureJoint [facility] between [facility] and [facility] ResourcesGlucose Yfytz2514-23-26 22:11:00* Test Item Value Reference Range Interpretation Comments Glucose Level (test code = XIY2466) 199 74-118 H [facility] ResourcesCalcium Qvmuv0724-11-07 22:11:00* Test Item Value Reference Range Interpretation Comments Calcium Level (test code = 53256-1) 9.0 8.4-10.2 [facility] ResourcesTotal Pmjsrmjtt0893-96-16 22:11:00* Test Item Value Reference Range Interpretation Comments Total Bilirubin (test code = 1975-2) 0.4 0.2-1.2 [facility] ResourcesAspartate Amino Transf (AST/SGOT) 2019-04-22 22:11:00* Test Item Value Reference Range Interpretation Comments Aspartate Amino Transf (AST/SGOT) (test code = Aspartate Amino Transf (AST/SGOT)) 16 5-34 [facility] ResourcesAlanine Aminotransferase (ALT/SGPT) 2019-04-22 22:11:00* Test Item Value Reference Range Interpretation Comments Alanine Aminotransferase (ALT/SGPT) (test code = 1742-6) 23 0-55 [facility] ResourcesTotal Linzfgy5417-77-72 22:11:00* Test Item Value Reference Range Interpretation Comments Total Protein (test code = 2885-2) 7.3 6.5-8.1 [facility] ResourcesAlbumin2020-01-16 22:11:00* Test Item Value Reference Range Interpretation Comments Albumin (test code = 1751-7) 3.7 3.5-5.0 [facility] ResourcesGlobulin2020-01-16 22:11:00* Test Item Value Reference Range Interpretation Comments Globulin (test code = 63784-9) 3.6 2.3-3.5 H [facility] ResourcesAlbumin/Globulin Fuymj2496-23-42 22:11:00 * Test Item Value Reference Range Interpretation Comments Albumin/Globulin Ratio (test code = 1759-0) 1.0 0.8-2.0 [facility] ResourcesAlkaline Mgcgfobriec4509-65-27 22:11:00* Test Item Value Reference Range Interpretation Comments Alkaline Phosphatase (test code = 6768-6) 71 40-150 [facility] ResourcesCreatine Kpqkvu3744-89-80 22:11:00* Test Item Value Reference Range Interpretation Comments Creatine Kinase (test code = 2157-6) 46 29-168 [facility] ResourcesAmylase Dzcfs3192-41-85 22:06:00* Test Item Value Reference Range Interpretation Comments Amylase Level (test code = 1798-8) 59 25-125 [facility] ResourcesLipase2020-01-16 22:06:00* Test Item Value Reference Range Interpretation Comments Lipase (test code = 3040-3) 24 8-78 [facility] ResourcesUrine Dqntv1584-48-28 22:00:00* Test Item Value Reference Range Interpretation Comments Urine Color (test code = 5778-6) YELLOW YELLOW [facility] ResourcesUrine Tdwofes4545-58-58 22:00:00* Test Item Value Reference Range Interpretation Comments Urine Clarity (test code = 77440-1) CLEAR CLEAR [facility] ResourcesUrine Specific Uxotbzr0270-52-98 22:00:00 * Test Item Value Reference Range Interpretation Comments Urine Specific [place] (test code = 5811-5) 1.025 1.010-1.02 5 [facility] ResourcesUrine [id number] 22:00:00* Test Item Value Reference Range Interpretation Comments Urine pH (test code = 39503-2) 5.5 5-7 [facility] ResourcesUrine Leukocyte Yhuwvsmx6025-96-95 22:00:00* Test Item Value Reference Range Interpretation Comments Urine Leukocyte Esterase (test code = 5799-2) NEGATIVE NEGATIVE [facility] ResourcesUrine Vzujzeq7366-04-40 22:00:00* Test Item Value Reference Range Interpretation Comments Urine Nitrite (test code = 90344-1) NEGATIVE NEGATIVE [facility] ResourcesUrine Zvyclzs6939-54-44 22:00:00* Test Item Value Reference Range Interpretation Comments Urine Protein (test code = 5804-0) NEGATIVE NEGATIVE [facility] Glucose (UA)2019-04-22 22:00:00* Test Item Value Reference Range Interpretation Comments Urine Glucose (UA) (test code = 2349-9) NEGATIVE NEGATIVE [facility] Plphsqc6943-54-35 22:00:00* Test Item Value Reference Range Interpretation Comments Urine Ketones (test code = 81328-6) NEGATIVE NEGATIVE [facility] Nhvhsthglzob1349-29-56 22:00:00* Test Item Value Reference Range Interpretation Comments Urine Urobilinogen (test code = 97821-8) 0.2 0.2-1 [facility] ResourcesUrine Wgvpyyfzk5886-03-49 22:00:00* Test Item Value Reference Range Interpretation Comments Urine Bilirubin (test code = 1978-6) NEGATIVE NEGATIVE [facility] ResourcesUrine Qvggo7985-66-50 22:00:00* Test Item Value Reference Range Interpretation Comments Urine Blood (test code = 42386-5) NEGATIVE NEGATIVE [facility] ResourcesWhite Blood Ivwna0353-97-25 21:53:00* Test Item Value Reference Range Interpretation Comments White Blood Count (test code = 6690-2) 9.16 4.8-10.8 [facility] ResourcesRed Blood Viipy7875-36-28 21:53:00* Test Item Value Reference Range Interpretation Comments Red Blood Count (test code = 789-8) 4.25 3.6-5.1 [facility] ResourcesHemoglobin2020-01-16 21:53:00* Test Item Value Reference Range Interpretation Comments Hemoglobin (test code = 69557-5) 13.9 12.0-16.0 [facility] ResourcesHematocrit2020-01-16 21:53:00* Test Item Value Reference Range Interpretation Comments Hematocrit (test code = 4544-3) 41.2 34.2-44.1 [facility] ResourcesMean Corpuscular Ohsncv4815-02-28 21:53:00* Test Item Value Reference Range Interpretation Comments Mean Corpuscular Volume (test code = 787-2) 96.9 81-99 [facility] ResourcesMean Corpuscular Nhstrjcvax5601-72-75 21:53:00* Test Item Value Reference Range Interpretation Comments Mean Corpuscular Hemoglobin (test code = 785-6) 32.7 28-32 H [facility] ResourcesMean Corpuscular Hemoglobin Concent 2019-04-22 21:53:00* Test Item Value Reference Range Interpretation Comments Mean Corpuscular Hemoglobin Concent (test code = 786-4) 33.7 31-35 [facility] ResourcesRed Cell Distribution Eiecg7916-64-26 21:53:00* Test Item Value Reference Range Interpretation Comments Red Cell Distribution Width (test code = 64131-9) 12.9 11.7 -14.4 [facility] ResourcesPlatelet Sxhvt5891-29-99 21:53:00* Test Item Value Reference Range Interpretation Comments Platelet Count (test code = 777-3) 269 140-360 [facility] ResourcesNeutrophils (%) (Auto)2019-04-22 21:53:00 * Test Item Value Reference Range Interpretation Comments Neutrophils (%) (Auto) (test code = 84235-2) 88.6 38.7-80.0 H [facility] ResourcesLymphocytes (%) (Auto)2019-04-22 21:53:00 * Test Item Value Reference Range Interpretation Comments Lymphocytes (%) (Auto) (test code = 736-9) 7.1 18.0-39.1 L [facility] ResourcesMonocytes (%) (Auto)2019-04-22 21:53:00* Test Item Value Reference Range Interpretation Comments Monocytes (%) (Auto) (test code = 5905-5) 3.6 4.4-11.3 L [facility] ResourcesEosinophils (%) (Auto)2019-04-22 21:53:00 * Test Item Value Reference Range Interpretation Comments Eosinophils (%) (Auto) (test code = 713-8) 0.2 0.0-6.0 [facility] ResourcesBasophils (%) (Auto)2019-04-22 21:53:00* Test Item Value Reference Range Interpretation Comments Basophils (%) (Auto) (test code = 706-2) 0.1 0.0-1.0 [facility] [place] [facility] ResourcesIM GRANULOCYTES %2019-04-22 21:53:00* Test Item Value Reference Range Interpretation Comments IM GRANULOCYTES % (test code = IM GRANULOCYTES %) 0.4 0.0- 1.0 [facility] ResourcesNeutrophils # (Auto)2019-04-22 21:53:00* Test Item Value Reference Range Interpretation Comments Neutrophils # (Auto) (test code = 751-8) 8.1 2.1-6.9 H [facility] ResourcesLymphocytes # (Auto)2019-04-22 21:53:00* Test Item Value Reference Range Interpretation Comments Lymphocytes # (Auto) (test code = 94589-6) 0.7 1.0-3.2 L [facility] ResourcesMonocytes # (Auto)2019-04-22 21:53:00* Test Item Value Reference Range Interpretation Comments Monocytes # (Auto) (test code = 742-7) 0.3 0.2-0.8 [facility] ResourcesEosinophils # (Auto)2019-04-22 21:53:00* Test Item Value Reference Range Interpretation Comments Eosinophils # (Auto) (test code = 711-2) 0.0 0.0-0.4 [facility] ResourcesBasophils # (Auto)2019-04-22 21:53:00* Test Item Value Reference Range Interpretation Comments Basophils # (Auto) (test code = 704-7) 0.0 0.0-0.1 [facility] ResourcesAbsolute Immature Granulocyte (auto 2019-04-22 21:53:00* Test Item Value Reference Range Interpretation Comments Absolute Immature Granulocyte (auto (jolene t code = Absolute Immature Granulocyte (auto) 0.04 0-0.1 [facility] Centererum or plasma creatine kinase measurement (enzymatic activity/volume)2019-04-22 20:35:00* Test Item Value Reference Range Interpretation Comments Creatine Kinase (test code = 2157-6) 46 29-168 [facility] Centererum or plasma creatine kinase MB measurement (mass/volume)2019-04-22 20:35:00* Test Item Value Reference Range Interpretation Comments Creatine Kinase MB (test code = 55146-3) 0.70 0-5.0 [facility] ResourcesTroponin I measurement by highly sensitive enzyme xsbtefasksx0111-17-25 20:35:00* Test Item Value Reference Range Interpretation Comments Troponin I (test code = 12304-0) 0.001 0-0.300 [facility] Centererum or plasma amylase measurement (enzymatic activity/volume)2019-04-22 20:35:00* Test Item Value Reference Range Interpretation Comments Amylase Level (test code = 1798-8) 59 25-125 [facility] Centererum or plasma lipase measurement (enzymatic activity/volume)2019-04-22 20:35:00* Test Item Value Reference Range Interpretation Comments Lipase (test code = 3040-3) 24 8-78 [facility] ResourcesUrine color xjvmhmenftubn2112-72-31 20:16:00* Test Item Value Reference Range Interpretation Comments Urine Color (test code = 5778-6) YELLOW YELLOW [facility] ResourcesUrine cuxowyj5106-29-86 20:16:00* Test Item Value Reference Range Interpretation Comments Urine Clarity (test code = 72017-9) CLEAR CLEAR [facility] Centerpecific gravity of Urine by Test strip 2019-04-22 20:16:00* Test Item Value Reference Range Interpretation Comments Urine Specific [place] (test code = 5811-5) 1.025 1.010-1.02 5 [facility] ResourcesUrine pH measurement by automated test elafo7861-65-04 20:16:00* Test Item Value Reference Range Interpretation Comments Urine pH (test code = 32067-1) 5.5 5-7 [facility] ResourcesUrine leukocyte esterase detection by qphecsri0686-27-24 20:16:00* Test Item Value Reference Range Interpretation Comments Urine Leukocyte Esterase (test code = 5799-2) NEGATIVE NEGATIVE [facility] ResourcesUrine nitrite peplffduj2891-23-63 20:16:00* Test Item Value Reference Range Interpretation Comments Urine Nitrite (test code = 95928-8) NEGATIVE NEGATIVE [facility] [place] [facility] ResourcesUrine protein measurement by test strip (mass/volume)2019-04-22 20:16:00* Test Item Value Reference Range Interpretation Comments Urine Protein (test code = 5804-0) NEGATIVE NEGATIVE [facility] ResourcesUrine glucose utcdjnzjq0574-10-66 20:16:00* Test Item Value Reference Range Interpretation Comments Urine Glucose (UA) (test code = 2349-9) NEGATIVE NEGATIVE [facility] ResourcesUrine ketones detection by automated test wrfjd9888-60-18 20:16:00* Test Item Value Reference Range Interpretation Comments Urine Ketones (test code = 21054-1) NEGATIVE NEGATIVE [facility] ResourcesUrine urobilinogen measurement by test strip (mass/volume)2019-04-22 20:16:00* Test Item Value Reference Range Interpretation Comments Urine Urobilinogen (test code = 30122-9) 0.2 0.2-1 [facility] ResourcesUrine total bilirubin measurement (mass/volume)2019-04-22 20:16:00* Test Item Value Reference Range Interpretation Comments Urine Bilirubin (test code = 1978-6) NEGATIVE NEGATIVE [facility] ResourcesUrine erythrocytes warntepwy2468-86-56 20:16:00* Test Item Value Reference Range Interpretation Comments Urine Blood (test code = 78589-2) NEGATIVE NEGATIVE [facility] ResourcesAutomated urine sediment leukocyte count by microscopy (number/high power field)2019-04-22 20:16:00* Test Item Value Reference Range Interpretation Comments Urine WBC (test code = 5821-4) NONE 0-5 [facility] ResourcesErythrocytes detection in urine sediment by light dbglyoagro3945-39-77 20:16:00* Test Item Value Reference Range Interpretation Comments Urine RBC (test code = 77426-8) NONE 0-5 [facility] ResourcesBacteria detection in urine sediment by light sjmahqukdu7449-23-30 20:16:00* Test Item Value Reference Range Interpretation Comments Urine Bacteria (test code = 62347-4) MANY NONE [facility] ResourcesEpithelial cells detection in urine sediment by light ngsgnhwinz4388-12-36 20:16:00* Test Item Value Reference Range Interpretation Comments Urine Epithelial Cells (test code = 80925-8) FEW NONE [facility] [place] [facility] ResourcesKNEE LEFT 1-2 FTMDX2777-10-85 14:11:00 [facility] [address] [address] Patient Name: SHANTEL NEWMAN MR #: [id number] : Age/Sex: 52/F Req #: [id number] Adm Physician: Ordered by: GERMAINE CASTANON [employer] Report #: [id number] Location: ER Room/Bed: Procedure: [id number] DX/KNEE LEFT 1-2 VIEWS Exam Date: 10/30/18 Kamilla flynn Time: 1320 REPORT STATUS: Signed Exam: Left Knee Series. History: Pain after fall Comparison: No ne Findings: Three radiographic views of the left knee demonstrate n o acute fracture or dislocation. Alignment is anatomic. No substantial degener ative change. Moderate suprapatellar joint effusion. Impression: Modera te suprapatellar knee joint effusion. No underlying acute osseous injury. Signed by: Supa Ludwig MD on 10/30/2018 2:12 PM Dictated By: SUPA LUDWIG MD 11 Transcribed By: MARIAH GARCIA on 10/30/181411 COPY TO: GERMAINE CASTANON NP Creatine Kinase UY1155-85-30 03:02:00* Test Item Value Reference Range Interpretation Comments Creatine Kinase MB (test code = 40133-5) 1.40 0-5.0 [place] 14474019-06-25 03:02:00* Test Item Value Reference Range Interpretation Comments Troponin I (test code = WEU7040) < 0.001 0-0.300 [facility] ResourcesCreatine Kinase WK4416-36-63 03:02:00* Test Item Value Reference Range Interpretation Comments Creatine Kinase MB (test code = 38515-5) 1.40 0-5.0 [facility] [id number] 03:02:00* Test Item Value Reference Range Interpretation Comments Troponin I (test code = PUZ3000) < 0.001 0-0.300 [facility] ResourcesCreatine Zmxpzx8483-64-18 02:54:00* Test Item Value Reference Range Interpretation Comments Creatine Kinase (test code = 2157-6) 96 29-168 [facility] ResourcesCreatine Sejjpc8344-43-17 02:54:00* Test Item Value Reference Range Interpretation Comments Creatine Kinase (test code = 2157-6) 96 29-168 [facility] Centerodium Cmchk5043-64-73 00:11:00* Test Item Value Reference Range Interpretation Comments Sodium Level (test code = 2951-2) 142 136-145 [facility] ResourcesPotassium Rcxcc3886-02-66 00:11:00* Test Item Value Reference Range Interpretation Comments Potassium Level (test code = 2823-3) 3.5 3.5-5.1 [facility] [place] [facility] ResourcesChloride Hbwku9470-98-54 00:11:00* Test Item Value Reference Range Interpretation Comments Chloride Level (test code = 2075-0) 106 98-107 [facility] ResourcesCarbon Dioxide Kupya3503-27-29 00:11:00* Test Item Value Reference Range Interpretation Comments Carbon Dioxide Level (test code = 2028-9) 22 - [facility] ResourcesAnion Yfh7521-46-74 00:11:00* Test Item Value Reference Range Interpretation Comments Anion Gap (test code = 33240-0) 17.5 8-16 H [facility] ResourcesBlood Urea Rqmglgan1972-35-68 00:11:00* Test Item Value Reference Range Interpretation Comments Blood Urea Nitrogen (test code = 3094-0) 11 10-30 [facility] ResourcesCreatinine2019-06-25 00:11:00* Test Item Value Reference Range Interpretation Comments Creatinine (test code = 2160-0) 0.82 0.57-1.11 [facility] [place] [facility] ResourcesBUN/Creatinine Lscvr0491-28-88 00:11:00* Test Item Value Reference Range Interpretation Comments BUN/Creatinine Ratio (test code = 3097-3) 13 09-29 [facility] [place] [facility] ResourcesEstimat Glomerular Filtration Rate 2018-09-29 00:11:00* Test Item Value Reference Range Interpretation Comments Estimat Glomerular Filtration Rate (test code = 712995317) > 60 >60 Ranges were taken from the National Kidney Disease Education Program and the [facility] literature.Reference ranges:60 or greater: Higunc97-46 ( for 3 consecutive months): Chronic kidney disease 15 or less: Kidney failureJoint venture between [facility] and [facility] ResourcesGlucose Ilhpu7845-94-35 00:11:00* Test Item Value Reference Range Interpretation Comments Glucose Level (test code = TPP8610) 230 74-118 H [facility] ResourcesCalcium Xxkmv1137-45-05 00:11:00* Test Item Value Reference Range Interpretation Comments Calcium Level (test code = 34286-1) 9.5 8.4-10.2 [facility] ResourcesTotal Tklkmbbfp0084-00-60 00:11:00* Test Item Value Reference Range Interpretation Comments Total Bilirubin (test code = 1975-2) 0.2 0.2-1.2 [facility] [place] [facility] ResourcesAspartate Amino Transf (AST/SGOT) 2018-09-29 00:11:00* Test Item Value Reference Range Interpretation Comments Aspartate Amino Transf (AST/SGOT) (test code = Aspartate Amino Transf (AST/SGOT)) 14 5-34 [facility] ResourcesAlanine Aminotransferase (ALT/SGPT) 2018-09-29 00:11:00* Test Item Value Reference Range Interpretation Comments Alanine Aminotransferase (ALT/SGPT) (test code = 1742-6) 19 0-55 [facility] Ygiwahf9683-44-51 00:11:00* Test Item Value Reference Range Interpretation Comments Total Protein (test code = 2885-2) 7.1 6.5-8.1 [facility] ResourcesAlbumin2019-06-25 00:11:00* Test Item Value Reference Range Interpretation Comments Albumin (test code = 1751-7) 3.6 3.5-5.0 [facility] ResourcesGlobulin2019-06-25 00:11:00* Test Item Value Reference Range Interpretation Comments Globulin (test code = 94494-8) 3.5 2.3-3.5 [facility] ResourcesAlbumin/Globulin Xlrpy2097-57-80 00:11:00 * Test Item Value Reference Range Interpretation Comments Albumin/Globulin Ratio (test code = 1759-0) 1.0 0.8-2.0 [facility] ResourcesAlkaline Carumvyywij3574-99-44 00:11:00* Test Item Value Reference Range Interpretation Comments Alkaline Phosphatase (test code = 6768-6) 86 40-150 [facility] Centerodium Bvjcx6558-57-01 00:11:00* Test Item Value Reference Range Interpretation Comments Sodium Level (test code = 2951-2) 142 136-145 [facility] ResourcesPotassium Onsej6191-59-22 00:11:00* Test Item Value Reference Range Interpretation Comments Potassium Level (test code = 2823-3) 3.5 3.5-5.1 [facility] ResourcesChloride Tdsgx0514-07-60 00:11:00* Test Item Value Reference Range Interpretation Comments Chloride Level (test code = 2075-0) 106 98-107 [facility] ResourcesCarbon Dioxide Ptanx0558-06-02 00:11:00* Test Item Value Reference Range Interpretation Comments Carbon Dioxide Level (test code = 2028-9) 22 22- [facility] ResourcesAnion Yhj0861-29-86 00:11:00* Test Item Value Reference Range Interpretation Comments Anion Gap (test code = 07835-1) 17.5 8-16 H [facility] ResourcesBlood Urea Vixxrubn0964-11-30 00:11:00* Test Item Value Reference Range Interpretation Comments Blood Urea Nitrogen (test code = 3094-0) 11 10-30 [facility] ResourcesCreatinine2019-06-25 00:11:00* Test Item Value Reference Range Interpretation Comments Creatinine (test code = 2160-0) 0.82 0.57-1.11 [facility] [place] [facility] ResourcesBUN/Creatinine Cbraj9478-25-28 00:11:00* Test Item Value Reference Range Interpretation Comments BUN/Creatinine Ratio (test code = 3097-3) 13 09-29 [facility] [place] [facility] ResourcesEstimat Glomerular Filtration Rate 2018-09-29 00:11:00* Test Item Value Reference Range Interpretation Comments Estimat Glomerular Filtration Rate (test code = 494059589) > 60 >60 Ranges were taken from the National Kidney Disease Education Program and the [facility] Foundation literature.Reference ranges:60 or greater: Lwxbtc50-23 ( for 3 consecutive months): Chronic kidney disease 15 or less: Kidney failureJoint [facility] between [facility] ResourcesGlucose Dhrjl8540-73-86 00:11:00* Test Item Value Reference Range Interpretation Comments Glucose Level (test code = NGL1972) 230 74-118 H [facility] ResourcesCalcium Qfyrl0200-78-23 00:11:00* Test Item Value Reference Range Interpretation Comments Calcium Level (test code = 59524-3) 9.5 8.4-10.2 [facility] ResourcesTotal Jmllnowtu4870-10-77 00:11:00* Test Item Value Reference Range Interpretation Comments Total Bilirubin (test code = 1975-2) 0.2 0.2-1.2 [facility] [place] [facility] ResourcesAspartate Amino Transf (AST/SGOT) 2018-09-29 00:11:00* Test Item Value Reference Range Interpretation Comments Aspartate Amino Transf (AST/SGOT) (test code = Aspartate Amino Transf (AST/SGOT)) 14 5-34 [facility] [place] [facility] ResourcesAlanine Aminotransferase (ALT/SGPT) 2018-09-29 00:11:00* Test Item Value Reference Range Interpretation Comments Alanine Aminotransferase (ALT/SGPT) (test code = 1742-6) 19 0-55 [facility] ResourcesTotal Fkfretx3439-99-90 00:11:00* Test Item Value Reference Range Interpretation Comments Total Protein (test code = 2885-2) 7.1 6.5-8.1 [facility] ResourcesAlbumin2019-06-25 00:11:00* Test Item Value Reference Range Interpretation Comments Albumin (test code = 1751-7) 3.6 3.5-5.0 [facility] ResourcesGlobulin2019-06-25 00:11:00* Test Item Value Reference Range Interpretation Comments Globulin (test code = 37121-0) 3.5 2.3-3.5 [facility] ResourcesAlbumin/Globulin Xegjr3722-73-08 00:11:00 * Test Item Value Reference Range Interpretation Comments Albumin/Globulin Ratio (test code = 1759-0) 1.0 0.8-2.0 [facility] ResourcesAlkaline Dusgnwismfl5396-20-92 00:11:00* Test Item Value Reference Range Interpretation Comments Alkaline Phosphatase (test code = 6768-6) 86 40-150 [facility] [place] [facility] ResourcesCHEST SINGLE (PORTABLE)2018-09-29 00:08:00 [address] [address] Patient Name: SHANTEL NEWMAN MR #: [id number] : 1965 Age/Sex: 52/F Req #: [id number] Adm Physician: Ordered by: DREW LION MD Report #: [id number] Location: ER Room/Bed: Procedure: [id number] DX/CHEST SINGLE (PORTABLE) Exam Date: 09/28/18 Exam Time: 2340 REPORT STATUS: Signed Examination: Single AP view of the chest. COMPARISON: None. INDICATION: Chest pain DISCUSSION: Lines/tubes: None. Lungs : The lungs are well inflated and clear. No pneumonia or pulmonary edema. Pleura: No pleural effusion or pneumothorax. Heart and mediastinum: The h eart and the mediastinum are unremarkable. Bones and soft tissues: No acut e bony abnormalities. IMPRESSION: 1. No acute cardiopulmonary abnormalities. Signed by: Dr. Angel Banda M.D. on 09/29/2018 12:11 AM Dictated By: ANGEL BANDA MD Transcribed By: MIHIR on 09/29/1810 COPY TO: DREW LION MD D-Dimer Quantitative (PE/DVT)2018-09-28 23:47:00 * Test Item Value Reference Range Interpretation Comments D-Dimer Quantitative (PE/DVT) (test code = 33186-5) 0.19 0. 00-0.45 As with all in vitro diagnostic tests, the test results should be interpreted by the physician in conjunction with clinical findings and other test results.Test results are reported in NEW D-dimer units(ug/mLFEU).[facility] ResourcesD-Dimer Quantitative (PE/DVT)2018-09-28 23:47:00* Test Item Value Reference Range Interpretation Comments D-Dimer Quantitative (PE/DVT) (test code = 69175-3) 0.19 0. 00-0.45 As with all in vitro diagnostic tests, the test results should be interpreted by the physician in conjunction with clinical findings and other test results.Test results are reported in NEW D-dimer units(ug/mLFEU).[facility] ResourcesD-Dimer Quantitative (PE/DVT)2018-09-28 23:47:00* Test Item Value Reference Range Interpretation Comments D-Dimer Quantitative (PE/DVT) (test code = 74553-2) 0.19 0. 00-0.45 As with all in vitro diagnostic tests, the test results should be interpreted by the physician in conjunction with clinical findings and other test results.Test results are reported in NEW D-dimer units(ug/mLFEU).[facility] ResourcesWhite Blood Loarz2598-41-83 23:44:00* Test Item Value Reference Range Interpretation Comments White Blood Count (test code = 6690-2) 7.79 4.8-10.8 [facility] ResourcesRed Blood Gawcj0200-65-77 23:44:00* Test Item Value Reference Range Interpretation Comments Red Blood Count (test code = 789-8) 3.94 3.6-5.1 [facility] ResourcesHemoglobin2019-06-24 23:44:00* Test Item Value Reference Range Interpretation Comments Hemoglobin (test code = 64773-6) 12.5 12.0-16.0 [facility] ResourcesHematocrit2019-06-24 23:44:00* Test Item Value Reference Range Interpretation Comments Hematocrit (test code = 4544-3) 37.1 34.2-44.1 [facility] ResourcesMean Corpuscular Gqlazn8741-65-48 23:44:00* Test Item Value Reference Range Interpretation Comments Mean Corpuscular Volume (test code = 787-2) 94.2 81-99 [facility] ResourcesMean Corpuscular Bfnpnarvvn1981-86-06 23:44:00* Test Item Value Reference Range Interpretation Comments Mean Corpuscular Hemoglobin (test code = 785-6) 31.7 28-32 [facility] ResourcesMean Corpuscular Hemoglobin Concent 2018-09-28 23:44:00* Test Item Value Reference Range Interpretation Comments Mean Corpuscular Hemoglobin Concent (test code = 786-4) 33.7 31-35 [facility] ResourcesRed Cell Distribution Qaaax5345-96-39 23:44:00* Test Item Value Reference Range Interpretation Comments Red Cell Distribution Width (test code = 00474-5) 12.9 11.7 -14.4 [facility] ResourcesPlatelet Lncue3738-30-29 23:44:00* Test Item Value Reference Range Interpretation Comments Platelet Count (test code = 777-3) 246 140-360 [facility] ResourcesNeutrophils (%) (Auto)2018-09-28 23:44:00 * Test Item Value Reference Range Interpretation Comments Neutrophils (%) (Auto) (test code = 79076-1) 52.2 38.7-80.0 [facility] ResourcesLymphocytes (%) (Auto)2018-09-28 23:44:00 * Test Item Value Reference Range Interpretation Comments Lymphocytes (%) (Auto) (test code = 736-9) 36.6 18.0-39.1 [facility] ResourcesMonocytes (%) (Auto)2018-09-28 23:44:00* Test Item Value Reference Range Interpretation Comments Monocytes (%) (Auto) (test code = 5905-5) 8.2 4.4-11.3 [facility] ResourcesEosinophils (%) (Auto)2018-09-28 23:44:00 * Test Item Value Reference Range Interpretation Comments Eosinophils (%) (Auto) (test code = 713-8) 1.9 0.0-6.0 [facility] ResourcesBasophils (%) (Auto)2018-09-28 23:44:00* Test Item Value Reference Range Interpretation Comments Basophils (%) (Auto) (test code = 706-2) 0.5 0.0-1.0 [facility] ResourcesIM GRANULOCYTES %2018-09-28 23:44:00* Test Item Value Reference Range Interpretation Comments IM GRANULOCYTES % (test code = IM GRANULOCYTES %) 0.6 0.0- 1.0 [facility] ResourcesNeutrophils # (Auto)2018-09-28 23:44:00* Test Item Value Reference Range Interpretation Comments Neutrophils # (Auto) (test code = 751-8) 4.1 2.1-6.9 [facility] ResourcesLymphocytes # (Auto)2018-09-28 23:44:00* Test Item Value Reference Range Interpretation Comments Lymphocytes # (Auto) (test code = 79945-0) 2.9 1.0-3.2 [facility] ResourcesMonocytes # (Auto)2018-09-28 23:44:00* Test Item Value Reference Range Interpretation Comments Monocytes # (Auto) (test code = 742-7) 0.6 0.2-0.8 [facility] ResourcesEosinophils # (Auto)2018-09-28 23:44:00* Test Item Value Reference Range Interpretation Comments Eosinophils # (Auto) (test code = 711-2) 0.2 0.0-0.4 [facility] ResourcesBasophils # (Auto)2018-09-28 23:44:00* Test Item Value Reference Range Interpretation Comments Basophils # (Auto) (test code = 704-7) 0.0 0.0-0.1 [facility] ResourcesAbsolute Immature Granulocyte (auto 2018-09-28 23:44:00* Test Item Value Reference Range Interpretation Comments Absolute Immature Granulocyte (auto (jolene t code = Absolute Immature Granulocyte (auto) 0.05 0-0.1 [facility] ResourcesActivated Partial Thromboplast Time 2018-09-28 23:44:00* Test Item Value Reference Range Interpretation Comments Activated Partial Thromboplast Time (test code = 79406-6) 28.4 23.8-35.5 [facility] ResourcesWhite Blood [id number] 23:44:00* Test Item Value Reference Range Interpretation Comments White Blood Count (test code = 6690-2) 7.79 4.8-10.8 [facility] ResourcesRed Blood [id number] 23:44:00* Test Item Value Reference Range Interpretation Comments Red Blood Count (test code = 789-8) 3.94 3.6-5.1 [facility] ResourcesHemoglobin2019-06-24 23:44:00* Test Item Value Reference Range Interpretation Comments Hemoglobin (test code = 63012-9) 12.5 12.0-16.0 [facility] ResourcesHematocrit2019-06-24 23:44:00* Test Item Value Reference Range Interpretation Comments Hematocrit (test code = 4544-3) 37.1 34.2-44.1 [facility] ResourcesMean Corpuscular [id number] 23:44:00* Test Item Value Reference Range Interpretation Comments Mean Corpuscular Volume (test code = 787-2) 94.2 81-99 [facility] ResourcesMean Corpuscular [id number] 23:44:00* Test Item Value Reference Range Interpretation Comments Mean Corpuscular Hemoglobin (test code = 785-6) 31.7 28-32 [facility] ResourcesMean Corpuscular Hemoglobin Concent 2018-09-28 23:44:00* Test Item Value Reference Range Interpretation Comments Mean Corpuscular Hemoglobin Concent (test code = 786-4) 33.7 31-35 [facility] ResourcesRed Cell Distribution [id number] 23:44:00* Test Item Value Reference Range Interpretation Comments Red Cell Distribution Width (test code = 92891-3) 12.9 11.7 -14.4 [facility] [place] [facility] ResourcesPlatelet [id number] 23:44:00* Test Item Value Reference Range Interpretation Comments Platelet Count (test code = 777-3) 246 140-360 [facility] ResourcesNeutrophils (%) (Auto)2018-09-28 23:44:00 * Test Item Value Reference Range Interpretation Comments Neutrophils (%) (Auto) (test code = 49095-3) 52.2 38.7-80.0 [facility] ResourcesLymphocytes (%) (Auto)2018-09-28 23:44:00 * Test Item Value Reference Range Interpretation Comments Lymphocytes (%) (Auto) (test code = 736-9) 36.6 18.0-39.1 [facility] [place] [facility] ResourcesMonocytes (%) (Auto)2018-09-28 23:44:00* Test Item Value Reference Range Interpretation Comments Monocytes (%) (Auto) (test code = 5905-5) 8.2 4.4-11.3 [facility] ResourcesEosinophils (%) (Auto)2018-09-28 23:44:00 * Test Item Value Reference Range Interpretation Comments Eosinophils (%) (Auto) (test code = 713-8) 1.9 0.0-6.0 [facility] [place] [facility] ResourcesBasophils (%) (Auto)2018-09-28 23:44:00* Test Item Value Reference Range Interpretation Comments Basophils (%) (Auto) (test code = 706-2) 0.5 0.0-1.0 [facility] [place] [facility] ResourcesIM GRANULOCYTES %2018-09-28 23:44:00* Test Item Value Reference Range Interpretation Comments IM GRANULOCYTES % (test code = IM GRANULOCYTES %) 0.6 0.0- 1.0 [facility] ResourcesNeutrophils # (Auto)2018-09-28 23:44:00* Test Item Value Reference Range Interpretation Comments Neutrophils # (Auto) (test code = 751-8) 4.1 2.1-6.9 [facility] [place] [facility] ResourcesLymphocytes # (Auto)2018-09-28 23:44:00* Test Item Value Reference Range Interpretation Comments Lymphocytes # (Auto) (test code = 51960-8) 2.9 1.0-3.2 [facility] [place] [facility] ResourcesMonocytes # (Auto)2018-09-28 23:44:00* Test Item Value Reference Range Interpretation Comments Monocytes # (Auto) (test code = 742-7) 0.6 0.2-0.8 [facility] [place] [facility] ResourcesEosinophils # (Auto)2018-09-28 23:44:00* Test Item Value Reference Range Interpretation Comments Eosinophils # (Auto) (test code = 711-2) 0.2 0.0-0.4 [facility] [place] [facility] ResourcesBasophils # (Auto)2018-09-28 23:44:00* Test Item Value Reference Range Interpretation Comments Basophils # (Auto) (test code = 704-7) 0.0 0.0-0.1 [facility] [place] [facility] ResourcesAbsolute Immature Granulocyte (auto 2018-09-28 23:44:00* Test Item Value Reference Range Interpretation Comments Absolute Immature Granulocyte (auto (jolene t code = Absolute Immature Granulocyte (auto) 0.05 0-0.1 [facility] [place] [facility] ResourcesActivated Partial Thromboplast Time 2018-09-28 23:44:00* Test Item Value Reference Range Interpretation Comments Activated Partial Thromboplast Time (test code = 42558-7) 28.4 23.8-35.5 [facility] [place] [facility] ResourcesActivated Partial Thromboplast Time 2018-09-28 23:44:00* Test Item Value Reference Range Interpretation Comments Activated Partial Thromboplast Time (test code = 30592-7) 28.4 23.8-35.5 [facility] ResourcesProthrombin [id number] 23:43:00* Test Item Value Reference Range Interpretation Comments Prothrombin Time (test code = 5902-2) 12.3 11.9-14.5 [facility] ResourcesProthromb Time International Ratio 2018-09-28 23:43:00* Test Item Value Reference Range Interpretation Comments Prothromb Time International Ratio (test code = 6301-6) 0.87 Oral Anticoagulant Therapy INR Values:1. Low Intensity Therapy 1.5 - 2.02 . Moderate Intensity Therapy 2.0 - 3.03. High Intensity Therapy(1) 2.5 - 3. 54. High Intensity Therapy(2) 3.0 - 4.05. Panic Value INR > 5.0 [facility] ResourcesProthrombin [id number] 23:43:00* Test Item Value Reference Range Interpretation Comments Prothrombin Time (test code = 5902-2) 12.3 11.9-14.5 [facility] [place] [facility] ResourcesProthromb Time International Ratio 2018-09-28 23:43:00* Test Item Value Reference Range Interpretation Comments Prothromb Time International Ratio (test code = 6301-6) 0.87 Oral Anticoagulant Therapy INR Values:1. Low Intensity Therapy 1.5 - 2.02 . Moderate Intensity Therapy 2.0 - 3.03. High Intensity Therapy(1) 2.5 - 3. 54. High Intensity Therapy(2) 3.0 - 4.05. Panic Value INR > 5.0 [facility] ResourcesProthrombin [id number] 23:43:00* Test Item Value Reference Range Interpretation Comments Prothrombin Time (test code = 5902-2) 12.3 11.9-14.5 [facility] [place] [facility] ResourcesProthromb Time International Ratio 2018-09-28 23:43:00* Test Item Value Reference Range Interpretation Comments Prothromb Time International Ratio (test code = 6301-6) 0.87 Oral Anticoagulant Therapy INR Values:1. Low Intensity Therapy 1.5 - 2.02 . Moderate Intensity Therapy 2.0 - 3.03. High Intensity Therapy(1) 2.5 - 3. 54. High Intensity Therapy(2) 3.0 - 4.05. Panic Value INR > 5.0 [facility]
--- OUTSIDE RECORDS SUMMARY | 2020-01-07 16:10 | XMS REPORT | Clinical Summary ---
Author Author [facility] ict Organization [facility] ict Address Unknown Phone Unavailable Care Team Providers Care Ccnp Name Role Phone Parminder Pérez MD PCP [phone] Allergies Comments Active Allergy Reactions Severity Noted Date Penicillins Rash 04/04/2009 Medications End Date Status Medication Sig Dispensed Refills Start Date Active electrolyte (PEDIALYTE) Take 1 Bottle 1 Bottle 3 SolnIndications: by mouth see 6 Infectious colitis, administratio enteritis, and n gastroenteritis instruction. Additional Information Patient not taking. Reported on 2019 8:24 AM Active gwqsmsalj-ngssgurl-htceui Take 30 mL by 1 Bottle 0 amor-simethicone (MAALOX mouth every 4 6 +) 200 mg hours as SuspIndications: needed for Epigastric abdominal Pain. pain, Nausea vomiting and diarrhea Additional Information Patient not taking. Reported on 06/07/2019 9:15 AM Active blood glucose Use as 1 Kit 0 meterIndications: directed.. 6 Non-insulin dependent type 2 diabetes mellitus Active cyclobenzaprine Take 1 tablet 30 tablet 0 07/17/19 1 (FLEXERIL) 10 mg by mouth 3 8 tabletIndications: times daily Tension headache as needed for Muscle Spasms. Additional Information Patient not taking. Reported on 2019 8:24 AM Active polyethylene glycol Add lukewarm 4000 mL 0 01/21 (GOLYTELY) [id number] drinking 8 -5.86 gram oral water to the solutionIndications: fill sherman (4 Occult blood positive liters) and stool shake. Drink as directed by your doctor.. Additional Information Patient not taking. Reported on 2019 8:24 AM Active ibuprofen (MOTRIN) 800 mg Take 1 tablet 20 tablet 0 tabletIndications: Dental by mouth 9 infection every 8 hours as needed for Pain. Additional Information Patient not taking. Reported on 04/23/2019 8:27 AM Active ibuprofen (MOTRIN) 800 mg Take 1 tablet 60 tablet 3 tabletIndications: by mouth 9 Chronic pain of left knee every 8 hours as needed for Pain. Additional Information Patient not taking. Reported on 2019 8:24 AM Active ibuprofen (MOTRIN) 600 mg Take 1 tablet 60 tablet 0 tabletIndications: by mouth 9 Chronic pain of left heel every 6 hours take with food. Additional Information Patient not taking. Reported on 04/23/2019 8:27 AM Active ibuprofen (MOTRIN) 800 mg Take 1 tablet 60 tablet 3 tabletIndications: Biceps by mouth 9 tendinitis, right every 8 hours as needed for Pain or Fever > 100.5. Additional Information Patient not taking. Reported on 2019 8:24 AM Active amLODIPine (NORVASC) 10 Take 1 tablet 90 tablet 3 mg tabletIndications: by mouth 9 Essential hypertension daily. Active dicyclomine (BENTYL) 20 Take 1 tablet 30 tablet 0 mg tabletIndications: by mouth 4 0 Calculus of gallbladder times daily. without cholecystitis without obstruction Additional Information Patient not taking. Reported on 2019 8:24 AM Active ondansetron (ZOFRAN) 4 mg Take 1 tablet 30 tablet 0 tabletIndications: by mouth 0 Calculus of gallbladder every 8 hours without cholecystitis as needed for without obstruction Nausea. Additional Information Patient not taking. Reported on 2019 8:24 AM Active acetaminophen-codeine Take 1 tablet 20 tablet 0 (TYLENOL/CODEINE #3) by mouth 2 0 300-30 mg per times daily tabletIndications: as needed for Calculus of gallbladder Pain. without cholecystitis without obstruction Active clonazePAM (KLONOPIN) 0.5 Take 1 tablet 60 tablet 0 mg tabletIndications: by mouth 2 0 Anxiety times daily as needed for Anxiety. Additional Information Patient not taking. Reported on 2019 8:24 AM Active famotidine (PEPCID) 20 mg Take 1 tablet 90 tablet 2 tabletIndications: by mouth 2 0 Abdominal pain, times daily. epigastric Additional Information Patient not taking. Reported on 2019 8:24 AM Active loratadine (CLARITIN) 10 Take 1 tablet 90 tablet 0 mg tabletIndications: by mouth 0 Viral upper respiratory daily. tract infection with cough Additional Information Patient not taking. Reported on 2019 8:24 AM Active codeine-guaiFENesin Take 5 mL by 120 mL 0 06/06 (ROBAFEN AC) 10-100 mg/5 mouth 3 times 0 mL syrupIndications: daily as Cough needed for Cough. Additional Information Patient not taking. Reported on 2019 8:24 AM Active mometasone (NASONEX) 50 2 Sprays by 17 g 0 mcg/actuation nasal each nostril 0 sprayIndications: Viral route daily. URI with cough Additional Information Patient not taking. Reported on 2019 8:24 AM Active montelukast (SINGULAIR) Take 1 tablet 30 tablet 0 10 mg tabletIndications: by mouth at 0 Viral URI with cough bedtime nightly. Additional Information Patient not taking. Reported on 2019 8:24 AM 05/06/2020 Active tropicamide (MYDRIACYL) Instill 1 15 mL 0 0.5 % ophthalmic Drop in each 0 solutionIndications: eye once as Diabetes mellitus with needed for up hemoglobin A1c goal of to 1 dose 7.0%-8.0% (for poor retina scan image). Additional Information Patient not taking. Reported on 2019 8:24 AM Active losartan (COZAAR) 50 mg Take 1 tablet 90 tablet 1 tabletIndications: by mouth 0 Essential hypertension daily. Active pioglitazone (ACTOS) 30 Take 1 tablet 90 tablet 1 mg tabletIndications: by mouth 0 Diabetes mellitus without daily. complication Active blood glucose test 2 times 50 Each 3 12/26/ 02 stripsIndications: weekly to 0 Diabetes mellitus without test blood complication sugar. Active lancets 28 by 100 Each 1 gaugeIndications: MISCELLANEOUS 0 Diabetes mellitus without route 2 times complication weekly. Active glyBURIDE-metFORMIN Take 1 tablet 360 tablet 3 12/07 (GLUCOVANCE) 5-500 mg per by mouth 0 tabletIndications: daily (with Diabetes mellitus without breakfast). complication 04/23/2019 Discontinued (Reorder) clonazePAM (KLONOPIN) 0.5 Take 1 tablet 60 tablet 0 mg tabletIndications: by mouth 2 3 Anxiety state, times daily unspecified as needed for Anxiety. 05/11/2019 Discontinued (Therapy comple isabela) ciclesonide (ZETONNA) 37 Use 1 [place] 6.1 g 0 0 mcg/actuation nasal HFA in each 7 inhalerIndications: Nasal nostril congestion daily. 04/23/2019 Discontinued (Reorder) glipiZIDE (GLUCOTROL) 5 Take 2 180 tablet 3 mg tabletIndications: tablets by 8 Diabetes mellitus without mouth 2 times complication daily (before meals). 03/23/2019 Discontinued (Reorder) metFORMIN (GLUCOPHAGE) Take 1 tablet 90 tablet 2 0 500 mg tabletIndications: by mouth 8 Type 2 diabetes mellitus daily (with without complication, breakfast) If without long-term current GI upset use of insulin occurs, split in half and take with breakfast and the other half with supper.. 03/22/2019 Discontinued (Reorder) amLODIPine (NORVASC) 10 Take 1 tablet 90 tablet 3 mg tabletIndications: by mouth 8 Essential hypertension daily. 03/24/2019 Discontinued (Reorder) lisinopril-hydrochlorothi Take 1 tablet 90 tablet 3 azide (PRINZIDE, by mouth 8 ZESTORETIC) 20-12.5 mg daily. per tabletIndications: Essential hypertension 04/23/2019 Discontinued (Reorder) glipiZIDE (GLUCOTROL) 5 Take 2 360 tablet 3 mg tabletIndications: tablets by 8 Diabetes mellitus without mouth 2 times complication daily (before meals). 03/22/2019 Discontinued (Reorder) metFORMIN (GLUCOPHAGE) Take 1 tablet 180 tablet 3 1 500 mg tabletIndications: by mouth 2 8 Diabetes mellitus without times daily complication (with meals). 2019 Discontinued (Reorder) lancets 28 by 100 Each 1 gaugeIndications: MISCELLANEOUS 8 Non-insulin dependent route 2 times type 2 diabetes mellitus weekly. 03/19/2019 Discontinued (Reorder) blood glucose test 2 times 50 Each 3 stripsIndications: weekly to 8 Non-insulin dependent test blood type 2 diabetes mellitus sugar. 05/11/2019 Discontinued (Therapy comple isabela) Dextromethorphan-Guaifene Take 10 ml po 420 mL 0 sin (DIABETIC TUSSIN MAX q4h prn x [address]) 10-200 mg/5 mL days. LiqdIndications: Viral URI with cough 04/23/2019 Discontinued (Reorder) pioglitazone (ACTOS) 30 Take 1 tablet 90 tablet 1 mg tabletIndications: by mouth 9 Diabetes mellitus without daily. complication 04/23/2019 Discontinued (Reorder) traMADol (ULTRAM) 50 mg Take 1 tablet 30 tablet 0 tabletIndications: Acute by mouth 4 9 pain of left knee times daily as needed for Pain. 2019 Discontinued (Reorder) blood glucose test 2 times 50 Each 3 stripsIndications: weekly to 9 Non-insulin dependent test blood type 2 diabetes mellitus sugar. 2019 Discontinued (Alternate ther apy) metFORMIN (GLUCOPHAGE) Take 1 tablet 180 tablet 3 1 500 mg tabletIndications: by mouth 2 9 Diabetes mellitus without times daily complication (with meals). 06/07/2019 Discontinued (Alternate ther apy) lisinopril-hydrochlorothi Take 1 tablet 90 tablet 3 azide (PRINZIDE, by mouth 9 ZESTORETIC) 20-12.5 mg daily. per tabletIndications: Essential hypertension 11/08/2019 Discontinued (Reorder) pioglitazone (ACTOS) 30 Take 1 tablet 90 tablet 1 mg tabletIndications: by mouth 0 Diabetes mellitus without daily. complication 2019 Discontinued (Alternate ther apy) glipiZIDE (GLUCOTROL) 5 Take 2 360 tablet 3 mg tabletIndications: tablets by 0 Diabetes mellitus without mouth 2 times complication daily (before meals). 09/15/2019 Discontinued (Duplicate Orde r) benzonatate (TESSALON Take one to 50 capsule 0 PERLES) 100 mg two capsules 0 capsuleIndications: Viral every 8 hours upper respiratory tract as needed for infection with cough cough. CAUTION: may cause drowsiness. 09/15/2019 Discontinued (Duplicate Orde r) mometasone (NASONEX) 50 2 Sprays by 17 g 0 mcg/actuation nasal each nostril 0 sprayIndications: Viral route daily. upper respiratory tract infection with cough 11/08/2019 Discontinued (Reorder) losartan (COZAAR) 50 mg Take 1 tablet 90 tablet 1 tabletIndications: by mouth 0 Essential hypertension daily. 06/07/2019 Discontinued (Reorder) codeine-guaiFENesin Take 5 mL by 120 mL 0 06/06 (ROBAFEN AC) 10-100 mg/5 mouth 3 times 0 mL syrupIndications: daily as Cough needed for Cough. 06/07/2019 Discontinued (Reorder) codeine-guaiFENesin Take 5 mL by 120 mL 0 06/06 (ROBAFEN AC) 10-100 mg/5 mouth 3 times 0 mL syrupIndications: daily as Cough needed for Cough. 09/29/2019 benzonatate (TESSALON Take 1 42 capsule 0 09/05 PERLES) 100 mg capsule by 0 capsuleIndications: Viral mouth 3 times URI with cough daily as needed for up to 14 days for Cough. 2019 Discontinued (Reorder) pioglitazone (ACTOS) 30 Take 1 tablet 90 tablet 1 mg tabletIndications: by mouth 0 Diabetes mellitus without daily. complication 12/16/2019 loteprednol etabonate Instill 1 5 mL 0 11/05 (LOTEMAX) 0.5 % Drop in right 0 ophthalmic eye 4 times suspensionIndications: daily for 7 Pingueculitis of right days. eye Status Hospital, Clinic, or Ordered Dose Route Frequency Start End Date Other Facility Date Administered Medication Ended triamcinolone acetonide 40 mg IX ONCE 02/23/20 (KENALOG-40) injection 40 19 9 mgIndications: Arthralgia of left knee, Complex tear of medial meniscus of left knee as current injury, initial encounter Ended lidocaine (PF) 10 mL IJ ONCE 02/23/20 02/23/20 1 (XYLOCAINE) 10 mg/mL (1 19 9 %) injection 10 mLIndications: Arthralgia of left knee, Complex tear of medial meniscus of left knee as current injury, initial encounter Ended triamcinolone acetonide 40 mg IX ONCE 05/24/19 (KENALOG-40) injection 40 20 0 mgIndications: Arthralgia of left knee, Primary osteoarthritis of left knee, Rupture of anterior cruciate ligament of left knee, initial encounter Ended lidocaine (PF) 10 mL IJ ONCE 05/24/19 05/24/19 2 (XYLOCAINE) 10 mg/mL (1 20 0 %) injection 10 mLIndications: Arthralgia of left knee, Primary osteoarthritis of left knee, Rupture of anterior cruciate ligament of left knee, initial encounter Active Problems Problem Noted Date Bilateral chronic knee pain 06/01/2019 Impaired functional mobility, balance, gait, and endu francoise 06/01/2019 Cholelithiasis without cholecystitis at this visit 0 05/21/2019 Gastroenteritis 09/14/2015 Nausea vomiting and diarrhea 09/13/2015 Epigastric abdominal pain 09/13/2015 Diabetes mellitus without complication 07/26/2015 Diastolic dysfunction 07/10/2015 HTN (hypertension) 04/26/2009 Heart murmur 04/26/2009 Hyperglycemia 10/06/2007 Abnormal LFT's 11/21/2006 Mixed hyperlipidemia 11/21/2006 Encounters Care Team Description Date Type Specialty Rhoda Sales MD 01/03/2020 Orders Only Family Practice Rhoda Sales MD Visit for screening mammogram 2019 Ancillary Radiology Procedure Rhoda Sales MD Diabetes mellitus without complication; Non-insulin dependent type 2 diabetes mellitus 2019 Telemedicine [facility] Christiano Katz DPM Medications 12/07/2019 Refill Podiatry Olya Cervantes, OD Diabetes mellitus type 2 without retinop athy (Primary Dx); Age-related nuclear cataract, bilateral; Hyperopia of both eyes with regular astigmatism and presbyopia; Pingueculitis of right eye 11/15/2019 Office Visit Ophthalmology Parminder Pérez MD Zare-Mehrjerdi, Mohammad, MD Diabetes mellitus with hemoglobin A1c go al of 7.0%- 8.0% (Primary Dx); Essential hypertension; Well adult health check; Diabetes mellitus without complication 11/08/2019 Telephonic Family Practice Encounter Parminder Pérez MD Canceled (Facility Failure) 10/06/2019 Telephonic Family Practice Encounter Parminder Pérez MD Urbi, Ryan P, MD Viral URI with cough (Primary Dx) 09/15/2019 Telephonic Family Practice Encounter Parminder Pérez MD No Show 09/09/2019 Teleonic Family Practice Encounter Rhoda Sales MD Essential hypertension (Primary Dx); Cough 06/07/2019 Office Visit Family Practice Justyna Vallejo MD Cough (Primary Dx) 06/05/2019 Emergency Emergency Medicine - 06/06/2019 Filemon Atkins, PT Impaired mobility and activities of bruce y living (Primary Dx); Difficulty walking; Bilateral chronic knee pain 06/01/2019 Therapy Physical Therapy Zelda Black MD Arthralgia of left knee (Primary Dx); Primary osteoarthritis of left knee; Rupture of anterior cruciate ligament of left knee, initial encounter; Complex tear of medial meniscus of left knee as current injury, sequela 05/24/2019 Office Visit Orthopedics Mitch Linares NP Cholelithiasis without cholecystitis at this visit (Primary Dx); Upper abdominal pain 05/21/2019 Office Visit General Surgery Filemon Atkins, PT Acute traumatic internal derangement of left knee, sequela (Primary Dx); Decreased range of motion (ROM) of left knee; Impaired mobility and activities of daily living; Difficulty walking 05/18/2019 Therapy Physical Therapy Gordo Cooper MD Veloz, Jessica, NP Viral upper respiratory tract infection with cough (Primary Dx) 05/11/2019 Same Day Family Practice Filemon Atkins, JOYA Impaired mobility and activities of bruce y living (Primary Dx); Decreased range of motion (ROM) of left knee; Acute traumatic internal derangement of left knee, sequela; Difficulty walking 05/04/2019 Therapy Physical Therapy Parminder Pérez MD Rupture of anterior cruciate ligament of left knee, subsequent encounter 04/30/2019 Hospital Radiology Encounter Jacques Marcus MD Primary osteoarthritis of both knees (Pr imary Dx); Rupture of anterior cruciate ligament of left knee, subsequent encounter 04/30/2019 Office Visit Orthopedics Parminder Pérez MD Abdominal pain, epigastric 04/27/2019 Ancillary Radiology Procedure Parminder Pérez MD Calculus of gallbladder without cholecys titis without obstruction (Primary Dx); Abdominal pain, epigastric; Diabetes mellitus without complication; Anxiety; Visit for screening mammogram; Need for vaccination; Hospital discharge follow-up 04/23/2019 Office Visit Family Practice Filemon Atkins, PT Difficulty walking (Primary Dx); Decreased range of motion (ROM) of left knee; Acute traumatic internal derangement of left knee, sequela; Impaired mobility and activities of daily living 04/15/2019 Therapy Physical Therapy Filemon Atkins, PT Difficulty walking (Primary Dx); Decreased range of motion (ROM) of left knee; Acute traumatic internal derangement of left knee, sequela; Impaired mobility and activities of daily living 03/24/2019 Therapy Physical Therapy Rhoda Sales MD Medications 03/24/2019 Refill [facility] Rhoda Sales MD Medications 03/22/2019 Refill [facility] Rhoda Sales MD Medications 03/19/2019 Refill [facility] Murali Black PT Difficulty walking (Primary Dx); Impaired mobility and activities of daily living; Acute traumatic internal derangement of left knee, sequela 03/17/2019 Therapy Physical Therapy Murali Black PT Acute traumatic internal derangement of left knee, sequela (Primary Dx); Decreased range of motion (ROM) of left knee 03/10/2019 Therapy Physical Therapy Murali Black, PT Acute traumatic internal derangement of left knee, sequela (Primary Dx); Decreased range of motion (ROM) of left knee 03/03/2019 Therapy Physical Therapy Murali Black, PT Acute traumatic internal derangement of left knee, sequela (Primary Dx); Decreased range of motion (ROM) of left knee 02/24/2019 Therapy Physical Therapy Jacques Marcus MD Thomas, Judy L, MD Arthralgia of left knee (Primary Dx); Complex tear of medial meniscus of left knee as current injury, initial encounter; Rupture of anterior cruciate ligament of left knee, initial encounter 02/22/2019 Office Visit Orthopedics Murali Black PT Acute traumatic internal derangement of left knee, sequela (Primary Dx); Decreased range of motion (ROM) of left knee 02/15/2019 Therapy Physical Therapy Rizwan Medina MD [place]asc[place], Randhir F, MD Complex tear of medial meniscus of left knee as current injury, initial encounter (Primary Dx); Rupture of anterior cruciate ligament of left knee, initial encounter 02/15/2019 Office Visit Orthopedics Jacques Marcus MD 02/15/2019 Orders Only Orthopedics Murali Black PT Acute traumatic internal derangement of left knee, sequela (Primary Dx); Decreased range of motion (ROM) of left knee 01/29/2019 Therapy Physical Therapy Vic Hill MD Chronic pain of left knee (Primary Dx) 01/24/2019 Emergency Emergency Medicine Rhoda Sales MD Rupture of anterior cruciate ligament of left knee, subsequent encounter (Primary Dx); Need for influenza vaccination 01/18/2019 Office Visit Family Practice after 01/06/2019 Immunizations Name Administration Dates Next Due Influenza Vaccine 05/27/2016 (Deferred: Patie nt Refused), 01/23/2015, 01/20/2015 (Deferred: Patie nt Refused), 12/29/2013 Influenza, 01/18/2019, 01/19/2018 Vaccine<FLUCELVAX>(Multi- Dose) PNEUMOCOCCAL 23-VALPS 10/31/2017 (Deferred: Patie nt Refused), 05/27/2016 VACCINE 25 MCG/0.5 ML (Deferred: Other) INJECTION PPV 23 (Pneumococcal 04/23/2019 (Deferred: Other - Will wait until next Polysaccharide 23 Valent) visit per patient. ) PPV 23 Pneumococcal 07/20/2018 (Deferred: Patie nt Refused) Polysaccaride Tdap (Tetanus Toxoid, 04/23/2019 (Deferred: Other - Will wait until next Reduced Diphtheria Toxoid visit per patient.), 01/19 (Deferred: Vaccine And Acellular Pertussis, Unavailable) Absorbed) Zoster Vaccine (Shingrix) 04/23/2019 (Deferred: Vacc ine Unavailable) Family History Medical History Relation Name Comments Other Brother kidney problems sin ce childhood; kidney failure of unknown cause required kidney transplan t at 23y/o; at 25y/o Other Brother x3; fine Heart Father [place] at 72y/o leading to Hypertension Father Diabetes Mother Hypertension Mother Other Mother ESRD on dialysis Other Sister x2; fine Relation Name Status Comments Brother (Age 25) Brother Alive x3 Brother Brother Father (Age 72) Maternal Grandfather Maternal Grandmother Mother Alive Paternal Grandfather Paternal Grandmother Sister Alive x2 Sister Social History Date Tobacco Use Types Packs/Day Years Used Never Smoker Smokeless Tobacco: Never Used Tobacco Cessation: Counseling Given: No Drinks/Week oz/Week Comments Alcohol Use No Food Insecurity Answer Date Recorded Within the past 12 months, you worried that your Never ginger e 07/14/2017 food would run out before you got money to buy more. Within the past 12 months, the food you bought Never true 07/14/2017 just didn't last and you didn't have mo gilberto to get more. Sex Assigned at Date Recorded Not on file Industry Job Start Date Occupation Not on file Not on file Not on file Travel End Travel History Travel Start 05/07/2019 [place] 05/07/2019 Date Recorded COVID-19 Exposure Response 2019 10:55 AM CDT In the last month, have you been in contact with No / Unsure someone who was confirmed or suspected to have Coronavirus / COVID-19? Last Filed Vital Signs Reading Time Taken Comments Vital Sign 117/60 06/07/2019 9:08 AM [employer] Blood Pressure 73 06/07/2019 9:08 AM [employer] Pulse 36.7 C (98.1 F) 06/07/2019 9:08 AM [employer] SUPER[employer] Temperature 20 06/07/2019 9:08 AM [employer] SUPER[employer] Respiratory Rate 99% 06/07/2019 9:08 AM [employer] SUPER[employer] Oxygen Saturation - - Inhaled Oxygen Concentration 85.9 kg (189 lb 6.4 oz) 06/07/2019 9:08 AM [employer] SUPER[employer] Weight 157.5 cm (5' 2") 06/07/2019 9:08 AM [employer] SUPER[employer]OR Height 34.64 06/07/2019 9:08 AM [employer] Body Mass Index Plan of Treatment Care Team Description Date Type Specialty Rhoda Sales MD [address] [place] [address] [phone] lab and mammogram results; waitlist janelle ent-Schedule 3 weeks from 01/0301/10/2020 Telemedicine Family Practice 01/17/2020 Appointment Radiology 01/17/2020 Appointment Radiology Health Maintenance Due Date Last Done Comments Cervical Cancer Scrn (3 02/14/2017 02/14/2014 Yrs) IMM Influenza Seasonal 01/06/2020 01/18/2019, Jan to June (>/= 19 yrs) 01/19/2018, 01/23/2015, Additional history exists Colorectal Cancer Scrn 02/03/2020 02/02/2019, Annual (FIT/FOBT) Age 49 08/12/2017 to 74 DM Foot Exam (Yearly) 04/23/2020 04/23/2019, 10/27/2017 DM Retinal Exam (Yearly) 11/14/2020 11/15/2019, 12/31/2018, 10/02/2018, Additional history exists Breast Cancer Scrn 12/26/2020 2019, (Yearly) 09/19/2017, 06/03/2016, Additional history exists DM HGBA1C (Yearly) 12/26/2020 2019, 04/23/2019, 05/18/2018, Additional history exists Goals Goal Patient Associated Recent Progress Patient-Stat Aut hor Goal Type Problems ed? Eat Healthy Lifestyle On track (04/13/2018 No Brunilda bills, 5:20 PM [employer]) Aide Presentation Manager Increase Physical Activity Lifestyle No Brisa Manuel, MARLA Home Glucose Monitoring Self Not on track No Tr burk, management (04/13/2018 5:20 PM MARLA Moran [employer]PER[employer]) Attend Nutrition Services Self No Juan Olivares appointment management Rhoda lai MD Procedures Comments Procedure Name Priority Date/Time Associated Diag nosis THYROID STIMULATING Routine 2019 Diabetes m ellitus without HORMONE (TSH) 11:04 AM CDT complication LIPID PROFILE Routine 2019 Diabetes mellit us without 11:04 AM CDT complication LIVER PROFILE Routine 2019 Diabetes mellit us without 11:04 AM CDT complication HEMOGLOBIN A1C Routine 2019 Diabetes mellit us without 11:04 AM CDT complication HEMOCCULT KIT FOR Routine 2019 Diabetes rayo litus without SPECIMEN COLLECTION AT 10:02 AM CDT complication HOME MAMMOGRAM BILAT SCREEN Routine 2019 Visit f or screening DIGITAL 9:33 AM CDT mammogram CREATININE POC Routine 06/05/2019 10:52 PM [employer] BMP POC Routine 06/05/2019 10:52 PM [employer]PER[employer] CBC STAT 06/05/2019 10:42 PM [employer] SUPER[employer]OR CBC/DIFF STAT 06/05/2019 10:42 PM [employer] SUPER[employer]OR XRAY CHEST 2 VIEWS STAT 06/05/2019 Cough 7:35 PM [employer]PER[employer] ECHG EKG PROC 12 LEAD Routine 06/05/2019 EKG; TRACING ONLY 6:36 PM [employer]PER[employer]OR GLUCOSE POC Routine 06/05/2019 6:31 PM [employer] SUPER[employer]OR XRAY KNEES-BILATERAL WT. 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 t of left knee, subsequent encounter XRAY UPPER GI W AIR Routine 04/27/2019 Abdominal pain, CONTRAST 9:42 AM [employer] SUPER[employer]OR epigastric HEMOGLOBIN A1C Routine 04/23/2019 Diabetes mellit us without 9:44 AM [employer]PER[employer]OR complication DIABETIC FOOT EXAM Routine 04/23/2019 Diabetes me llitus without 9:19 AM [employer] complication FECAL OCCULT BLOOD Routine 02/02/2019 Rupture of anterior 1:11 PM CDT cruciate ligament of left knee, subsequent encounter HEMOCCULT KIT FOR Routine 01/18/2019 Rupture of a nterior SPECIMEN COLLECTION AT 8:35 AM CDT cruciate ligam ent of left HOME knee, subsequent encounter after 01/06/2019 Results * Hemoglobin A1C (2019 11:04 AM CDT) Only the most recent of 2 results within the time period is included. Hemoglobin A1c 12.0 (H) 4.3 - 6.1 % [facility] Estimated 298 (H) 70 - 110 mg/dL [facility] Average Glucose LAB[facility]ORY Specimen Blood Performing Organization Address [facility] one Number [facility] [address] [place] [address] * TSH [Thyroid Stimulating Hormone] (2019 11:04 AM CDT) TSH 1.31 0.45 - 5.33 uIU/mL [facility] Comment: LABORATORY If , please see the following reference ranges (not verified by lab): 1st Trimester: 0.05 -3.70 uIU/mL 2nd Trimester: 0.31 -4.35 uIU/mL 3rd Trimester: 0.41 - 5.18 uIU/mL Specimen Blood Performing Organization Address [facility] one Number [facility] [address] [place] [address] [phone] * Liver Profile (2019 11:04 AM CDT) Pathologist [facility] Total Protein 7.0 6.0 - 8.3 g/dL [facility] Bilirubin, 0.5 0.2 - 1.2 mg/dL [facility] Total LABORATORY Alkaline 71 34 - 104 U/L [facility] Phosphatase [facility]ORATORY AST 29 13 - 39 U/L [facility] Direct 0.1 0.0 - 0.2 mg/dL [facility] Bilirubin [facility]ORY ALT 32 7 - 52 U/L [facility] Albumin 4.1 3.7 - 5.3 g/dL [facility] Specimen Blood Performing Organization Address [facility] one Number [facility] [address] [place] [address] * Lipid Profile (2019 11:04 AM CDT) Pathologist [facility] Cholesterol 228.0 (H) <=200.0 mg/dL [facility] Triglyceride 192 (H) <150 mg/dL [facility] HDL 37.0 See Reference Range [facility] Narrative. mg/dL LABORATORY LDL 153 (H) <100 mg/dL [facility] Comment: LABORATORY Optimal: < 100.0 mg/dL Near Optimal: 120-129 mg/dL Borderline: 130-159 mg/dL High: 160-189 mg/dL Very High: >=190 mg/dL Patient Yes [facility] Fasting? LABORATORY Specimen Blood Performing Organization Address City/State/Zipcode Ph one Number [facility] [address] [place], [place] [phone] * MAMMOGRAM BILAT SCREEN DIGITAL (2019 9:33 AM CDT) Specimen Impressions Performed At IMPRESSION: INCOMPLETE: NEEDS ADDITIONAL IMAGING EVAL UATION [facility] The 0.9 cm coarse heterogeneous calcifi cations with questionable assocated focal asymmetry in the right breast is indeterminate. 3D imaging view as well as a possible ultr asound and magnification views are recommended for further evalu ation. I have reviewed the study and agree wit h the findings in the report. This document has been electronically s igned. Harinder oscar M.D. ,jf/:2019 14:03:43 copy to: [facility] SalesSaint [facility] , ph: Teaching Manager: STEF BLACK [facility] letter sent: Additional Imaging Needed Mammogram BI-RADS: 0 Indeterminate G 0202 z12.31 Narrative Performed At #[id number] - MAMMOGRAM BILAT SCREEN DIGITAL [facility] BILATERAL DIGITAL SCREENING MAMMOGRAM W ITH CAD: 2019 CLINICAL: Screening. Comparison is made to exams dated: [place], 06/03/2016, 02/20/2015 [facility], , and 06/08/2009 [place]. There are scattered fibroglandular akiak ents in both breasts that could obscure a lesion on mammography. Current study was also evaluated with a Computer Aided Detection (CAD) system. There is a 0.9 cm group of coarse heter ogeneous calcifications with questionable associated focal asym metry in the right breast at 12 o'clock middle depth. These are more prominent when compared to prior imaging. Additiona l benign calcifications are present in the both breasts. Procedure Note Interface, Rad/Mammog In - 12/28/2019 1:31 PM CDT #[id number] - MAMMOGRAM BILAT SCREEN DIGITAL BILATERAL DIGITAL SCREENING MAMMOGRAM WITH CAD: 2019 CLINICAL: Screening. Comparison is made to exams dated: 09/19/2017 [place], 06/03/2016, 02/20/2015 [facility], , and 06/08/2009 [place]. There are scattered fibroglandular elements in both breasts that could obscure a lesion on mammography. Current study was also evaluated with a Computer Aided Detection (CAD) system. There is a 0.9 cm group of coarse heterogeneous calcifications with questionable associated focal asymmetry in the right breast at 12 o'clock middle depth. These are more prominent when compared to prior imaging. Additional benign calcifications are present in the both breasts. IMPRESSION IMPRESSION: INCOMPLETE: NEEDS ADDITIONAL IMAGING EVALUATION The 0.9 cm coarse heterogeneous calcifications with questionable assocated focal asymmetry in the right breast is indeterminate. 3D imaging view as well as a possible ultrasound and magnification views are recommended for further evaluation. I have reviewed the study and agree with the findings in the report. This document has been electronically signed. Harinder Lay M.D. lg,jf/:2019 14:03:43 copy to: Rhoda Sales, [place] , ph: Teaching Manager: STEF BLACK, [facility] letter sent: Additional Imaging Needed Mammogram BI-RADS: 0 Indeterminate G0202 z12.31 Performing Organization Address [facility] Ph one Number SMS * POCT CREATININE POC docked device (06/05/2019 10:52 PM FEED INSPECTION SUPERVISOR) Creatinine POC 0.6 0.6 - 1.3 mg/dL [facility] GFR, Estimated >90 >=90 mL/min/1.73 m2 [facility] Specimen Blood, venous Performing Organization Address [facility] Ph one Number [facility] [address] [place] [phone] * POCT BMP POC docked device (06/05/2019 10:52 PM FEED INSPECTION SUPERVISOR) Sodium POC 139 136 - 145 mmol/L [facility] Potassium POC 4.0 3.5 - 5.1 mmol/L [facility] Chloride POC 105 98 - 107 mmol/L [facility] TCO2 POC 27 21 - 32 mmol/L [facility] Urea Nitrogen 23 (H) 7 - 18 mg/dL [facility] POC Glucose POC 169 (H) 74 - 106 mg/dL [facility] Hemoglobin POC 12.6 12 - 16 g/dL [facility] Hematocrit POC 37.0 37.0 - 47.0 % [facility] Specimen Blood, venous Performing Organization Address City[facility]State[facility] one Number [facility] [address] [place] [address] * CBC/Diff (06/05/2019 10:42 PM FEED INSPECTION SUPERVISOR) WBC 11.0 4.5 - 11.0 K/uL [facility] RBC 3.89 (L) 4.20 - 5.40 M/uL [facility] Hemoglobin 12.2 12.0 - 16.0 g/dL [facility] Hematocrit 37.4 37.0 - 47.0 % [facility] MCV 96.1 (H) 82.0 - 92.0 fL [facility] MCH 31.4 27.0 - 32.0 pg [facility] MCHC 32.6 32.0 - 36.0 g/dL [facility] RDW 46.7 (H) 36.4 - 46.3 fL [facility] Platelet 290 150 - 400 K/uL [facility] Mean Platelet 10.2 9.4 - 12.4 fL [facility] Volume Percent NRBC 0.0 % [facility] Neutrophil 67.7 34.0 - 70.0 % [facility] Lymphs 22.5 20.0 - 50.0 % [facility] Monocytes 8.4 5.0 - 12.0 % [facility] Eos 0.5 (L) 0.7 - 5.0 % [facility] Basos 0.4 0.1 - 1.2 % [facility] Immature 0.5 0.0 - 0.5 % [facility] Granulocytes Neutrophils 7.43 (H) 1.56 - 6.13 K/uL [facility] (Absolute) Lymphs 2.47 1.18 - 3.74 K/uL [facility] (Absolute) Monocytes(Absol 0.92 (H) 0.24 - 0.36 K/uL [facility] aravind) Eos (Absolute) 0.05 0.04 - 0.36 K/uL [facility] Baso (Absolute) 0.04 0.01 - 0.08 K/uL [facility] Immature Grans 0.05 (H) 0.00 - 0.03 K/uL [facility] (Abs) Absolute NRBC 0.00 K/uL [facility] Specimen Blood Performing Organization Address City/State/Zipcode Ph one Number [facility] [address] [place] [address] * XRAY CHEST 2 VIEWS (06/05/2019 7:35 PM FEED INSPECTION SUPERVISOR) Specimen Impressions Performed At IMPRESSION: SMS No acute cardiopulmonary abnormality. This [facility] radiology report is a prelimi nary resident dictation until finalized by an attending. Changes to this preliminary report may occur in an additional preliminary or finaliz ed version. I have reviewed the study and agree wit h the findings in this report. Signed By: Karl Perez MD, 020 8:04 PM Narrative Performed At EXAM: XR CHEST 2 VIEWS SMS DATE: 06/05/2019 7:35 PM INDICATION: cough. Cough COMPARISON: Chest radiograph dated 04/16 TECHNIQUE: PA and lateral chest radiogr aphs FINDINGS: Lines, tubes and hardware: None. Lungs and pleura: No pulmonary edema. T he lungs are clear. The costophrenic sulci are sharp, without p leural effusion. No pneumothorax is identified. Heart and mediastinum: The heart size i s normal for technique. The mediastinal contours are normal. Bones and soft tissues: No acute abnorm ality. Procedure Note Interface, Rad/Mammog In - 06/05/2019 8:09 PM FEED INSPECTION SUPERVISOR EXAM: XR CHEST 2 VIEWS DATE: 06/05/2019 7:35 PM INDICATION: cough. Cough COMPARISON: Chest radiograph dated 04/16/2012 TECHNIQUE: PA and lateral chest radiographs FINDINGS: Lines, tubes and hardware: None. Lungs and pleura: No pulmonary edema. The lungs are clear. The costophrenic sulci are sharp, without pleural effusion. No pneumothorax is identified. Heart and mediastinum: The heart size is normal for technique. The mediastinal contours are normal. Bones and soft tissues: No acute abnormality. IMPRESSION IMPRESSION: No acute cardiopulmonary abnormality. This [facility] radiology report is a preliminary resident dictation until finalized by an attending. Changes to this preliminary report may occur in an additional preliminary or finalized version. I have reviewed the study and agree with the findings in this report. Signed By: Karl Perez MD, 06/05/2019 8:04 PM Performing Organization Address [facility] one Number SMS * 12 LEAD EKG (06/05/2019 6:36 PM FEED INSPECTION SUPERVISOR) 12 LEAD EKG FOR [facility]: 2019-06-05 Pat Name: SHANTEL NEWMANDepartment: [id number] Room: Gender: F Manager Music: : 1965 Requested By: MIRACLE Persaud Order Number: [id number] Reading MD: Raymundo Reina Measurements Intervals [place] Rate: 91 P: 57 NE: 147 QRS: 38 QRSD: 77 T: 55 QT: 344 QTc: 423 Interpretive Statements SINUS RHYTHM POSSIBLE LEFT ATRIAL ENLARGEMENT NONSPECIFIC ST & T-WAVE ABNORMALITY Electronically Signed On 06-07-2019 16:11:58 FEED INSPECTION SUPERVISOR by Raymundo Reina Specimen Performing Organization Address [facility] one Number SMS * POCT GLUCOSE POC docked device (06/05/2019 6:31 PM FEED INSPECTION SUPERVISOR) Glucose POC 128 (H) 74 - 106 mg/dL [facility] Specimen Blood Performing Organization Address [facility] one Number [facility] [address] [place] [address] * XRAY KNEES-BILATERAL WT. BEARING (AP/LAT/SUN) (04/30/2019 9:37 AM FEED INSPECTION SUPERVISOR) Specimen Impressions Performed At IMPRESSION: [facility] 1. Right knee: No radiographic eviden ce for osteoarthrosis. 2. Left knee: No radiographic evidenc e for osteoarthrosis. This [facility] radiology report is a prelimi nary resident dictation until finalized by an attending. Changes to this preliminary report may occur in an additional preliminary or finaliz ed version. Dictated By: Kenn Mancini MD, 04/30 10:13 AM I have reviewed the study and agree wit h the findings in this report. Signed By: Geoff Galeano MD, 0 10:28 AM Narrative Performed At EXAM: XR BILATERAL KNEE 3 VIEWS [facility] DATE: 04/30/2019 9:38 AM INDICATION: assess for bilateral knee a rthritis. Rupture of anterior cruciate ligament of left knee, subsequ ent encounter COMPARISON: Knee radiographs on 12/18/19 19 TECHNIQUE: Weight-bearing AP, and lat eral views of the bilateral knees DISCUSSION: No acute fracture or sandra lignment is identified. Right knee: There is no osteophyte form ation. Joint spaces are preserved in all three compartments. No additiona l findings of osteoarthrosis are present. No knee joint effusion is iden tified. Left knee: There is no osteophyte forma tion. Joint spaces are preserved in all three compartments. No additiona l findings of osteoarthrosis are present. No knee joint effusion is iden tified. No soft tissue abnormality is identifie d. Procedure Note Interface, Rad/Mammog In - 04/30/2019 10:33 AM FEED INSPECTION SUPERVISOR EXAM: XR BILATERAL KNEE 3 VIEWS DATE: 04/30/2019 9:38 AM INDICATION: assess for bilateral knee arthritis. Rupture of anterior cruciate ligament of left knee, subsequent encounter COMPARISON: Knee radiographs on 12/17/2018 TECHNIQUE: Weight-bearing AP, and lateral views of the bilateral knees DISCUSSION: No acute fracture or malalignment is identified. Right knee: There is no osteophyte formation. Joint spaces are preserved in all three compartments. No additional findings of osteoarthrosis are present. No knee joint effusion is identified. Left knee: There is no osteophyte formation. Joint spaces are preserved in all three compartments. No additional findings of osteoarthrosis are present. No knee joint effusion is identified. No soft tissue abnormality is identified. IMPRESSION IMPRESSION: 1. Right knee: No radiographic evidence for osteoarthrosis. 2. Left knee: No radiographic evidence for osteoarthrosis. This [facility] radiology report is a preliminary resident dictation until finalized by an attending. Changes to this preliminary report may occur in an additional preliminary or finalized version. Dictated By: Kenn Mancini MD, 04/30/2019 10:13 AM I have reviewed the study and agree with the findings in this report. Signed By: Geoff Galeano MD, 04/30/2019 10:28 AM Performing Organization Address City/State/Zipcode Ph one Number SMS * XRAY UPPER GI W AIR CONTRAST (04/27/2019 9:42 AM FEED INSPECTION SUPERVISOR) Specimen Impressions Performed At IMPRESSION: SMS Normal hiatal hernia with mild gastroes ophageal reflux. If the report is "FINALIZED" it indicat es that the attending/staff radiologist has reviewed the images and agrees with the resident's interpretation. Dictated By: Fer Stoddard MD, 04/27/2019 2:46 PM I have reviewed the study and agree wit h the findings in this report. Signed By: Daniel Jarrett MD, 04/27/2019 4:23 PM Narrative Performed At EXAM: DOUBLE CONTRAST UPPER GI SERIES SMS INDICATION: epigastric pain COMPARISON: CT abdomen pelvis on 05/12/19 15. TECHNIQUE: Effervescent granules and ba rium were swallowed by mouth and fluoroscopy was performed of the UGI tr act and documented with spot films. RADIATION DOSE: Fluoroscopy Time: 2.1 min Dose Area Product: 18.5 Gycm2 Cumulative Air Kerma: 75.8 mGy FINDINGS: ESOPHAGUS: Motility: Within normal limits. Mucosa: Unremarkable. Distensibility: Normal. GASTROESOPHAGEAL JUNCTION: Small hiatal hernia. GASTROESOPHAGEAL REFLUX: Mild gastroeso phageal reflux. STOMACH: Normally distensible and demon strates normal contours and mucosal pattern. DUODENUM: Bulb and sweep are normal. Duodenal-jejunal junction is in the nor mal expected position. Procedure Note Interface, Rad/Mammog In - 04/27/2019 4:28 PM FEED INSPECTION SUPERVISOR EXAM: DOUBLE CONTRAST UPPER GI SERIES INDICATION: epigastric pain COMPARISON: CT abdomen pelvis on 05/12/2014. TECHNIQUE: Effervescent granules and barium were swallowed by mouth and fluoroscopy was performed of the UGI tract and documented with spot films. RADIATION DOSE: Fluoroscopy Time: 2.1 min Dose Area Product: 18.5 Gycm2 Cumulative Air Kerma: 75.8 mGy FINDINGS: ESOPHAGUS: Motility: Within normal limits. Mucosa: Unremarkable. Distensibility: Normal. GASTROESOPHAGEAL JUNCTION: Small hiatal hernia. GASTROESOPHAGEAL REFLUX: Mild gastroesophageal reflux. STOMACH: Normally distensible and demonstrates normal contours and mucosal pattern. DUODENUM: Bulb and sweep are normal. Duodenal-jejunal junction is in the normal expected position. IMPRESSION IMPRESSION: Normal hiatal hernia with mild gastroesophageal reflux. If the report is "FINALIZED" it indicates that the attending/staff radiologist has reviewed the images and agrees with the resident's interpretation. Dictated By: Fer Stoddard MD, 04/27/2019 2:46 PM I have reviewed the study and agree with the findings in this report. Signed By: Daniel Jarrett MD, 04/27/2019 4:23 PM Performing Organization Address City/[facility] one Number SMS * DIABETIC FOOT EXAM (04/23/2019 9:19 AM FEED INSPECTION SUPERVISOR) Narrative Performed At Parminder Pérez MD 020 12:02 PM Diabetic Foot Exam was performed at 04/07 9:23 AM. Right foot sensation is normal, right foot pulses are normal, right foot appearance is normal. Left foot sensation is nor mal, left foot pulses are normal, left foot appearance is normal. * FECAL OCCULT BLOOD (02/02/2019 1:11 PM CDT) Occult Blood Negative Negative [facility] Specimen Stool - Feces Performing Organization Address [facility] Ph one Number [facility] [address] [place] [address] 71 [facility] after 01/06/2019 Insurance Type Payer Benefit Subscriber ID Effective Phone Address Plan / Dates Group [facility] xxxxxxxxxxxx 2019-1 [phone] [facility] [id number] [facility] [id number] [facility] [employer] xxxxxx [phone]- [phone] [place] [address] [phone]
== END 2020-01-07 16:57 | disposition home or self-care (01) ==
LOC: ER 15:30
DX: R42 Dizziness and giddiness (principal); E11.65 Type 2 diabetes mellitus with hyperglycemia; I10 Essential (primary) hypertension
CPT/HCPCS: 36415; 80048; 81001; 82550; 82553; 84484; 85025; 87086; 93005; 99283; J1200; J1885; J2765; J7030